=== PATIENT | female | born 1975 | race Caucasian/White ===

== ENCOUNTER 2016-06-02 11:23 | Inpatient (IN) | payer BC, OTHER ==
[2016-06-01 14:03] VITALS: BMI 22.4
[2016-06-02] VITALS (37 sets, daily range): BP systolic 117–188; BP diastolic 57–95; PULSE 70–116; RESP 14–25; Ht 162.6 cm; Wt 69.9 kg
[~2016-06-02] VITALS: Ht 162.6 cm; Wt 69.9 kg
[~2016-06-02 11:23] MED LIST: [UNRECOGNIZED DRUG - OTHER]
[2016-06-02] MEDS ORDERED: GABA300C16 PO (12:11)
[2016-06-02] MEDS ORDERED: FENO160T13 PO (12:13)
[2016-06-02] MEDS ORDERED: CHOL10009 PO (12:14)
[2016-06-02] MEDS ORDERED: LANT3I SC (12:22)
[2016-06-02] MEDS ORDERED: GELATIN SIZE 100 SPONGE ONE (12:40)
[2016-06-02] MEDS ORDERED: LIDOCAINE 0.5%/EPI (MDV) 50 ML INJ ONE (12:41)
[2016-06-02] MEDS ORDERED: THROMBIN 5000 UNIT VIAL ONE (12:41)
[2016-06-02] MEDS ORDERED: POLYMYXIN/BACITRACIN 1L IRRIG ONE (12:41)
[2016-06-02] MEDS ORDERED: INSULIN ASPART [NOVOLOG] 3 ML PEN SC SCH ×2 (13:00→21:00)
[2016-06-02] MEDS ORDERED: MEPERIDINE 100 MG INJ ONE (13:16)
[2016-06-02] MEDS ORDERED: GLYCOPYRROLATE 0.4 MG INJ ONE ×2 (13:16→15:34)
[2016-06-02] MEDS ORDERED: SUCCINYLCHOLINE CHLORIDE 100 MG/5 ML SYG IV ONE (13:16)
[2016-06-02] MEDS ORDERED: PROPOFOL 20 ML ONE (13:16)
[2016-06-02] MEDS ORDERED: ROCURONIUM 50 MG INJ ONE ×2 (13:16→14:55)
[2016-06-02] MEDS ORDERED: NEOSTIGMINE 3 MG/3 ML SYRINGE ONE ×2 (13:16→15:34)
[2016-06-02] MEDS ORDERED: LIDOCAINE 2% (SDV) 5 ML INJ ONE (13:16)
[2016-06-02] MEDS ORDERED: morphine 10 MG INJ IM PRN (14:30)
[2016-06-02] MEDS ORDERED: CEFAZOLIN 1 GM INJ ONE (14:53)
[2016-06-02] MEDS ORDERED: hydrALAzine 20 MG INJ ONE (14:56)
[2016-06-02] MEDS ORDERED: LABETALOL HCL 20MG INJ ONE (14:59)
[2016-06-02] MEDS ORDERED: DEXTROSE 5%-LR 1,000 ML IV SCH (15:00)
[2016-06-02] MEDS ORDERED: ONDANSETRON 4 MG INJ ONE (15:28)
[2016-06-02] MEDS ORDERED: METOCLOPRAMIDE 10 MG INJ ONE (15:28)
[2016-06-02] MEDS ORDERED: BACITRACIN/POLYMYXIN 28.35 GM OINT TOP ONE (16:07)
[2016-06-02] MEDS ORDERED: POLYMYXIN/BACITRACIN 1L IRRIG IRR ONE (16:15)
[2016-06-02] MEDS ORDERED: FENTAnyl 50 MCG/ML VIAL ONE (16:40)
[2016-06-02] MEDS ORDERED: MEPERIDINE 25 MG INJ IV PRN (17:00)
[2016-06-02] MEDS ORDERED: HYDROmorphONE (0.2 MG/ML) 10ML SYG IV PRN ×2 (17:00)
[2016-06-02] MEDS ORDERED: METOCLOPRAMIDE 10 MG INJ IV PRN (17:00)
[2016-06-02] MEDS ORDERED: morphine (1 MG/ML) 10ML SYRINGE IV PRN ×2 (17:00)
[2016-06-02] MEDS ORDERED: MIDAZOLAM 1 MG/ML 2 ML INJ IV PRN (17:00)
[2016-06-02] MEDS ORDERED: EPHEDrine SULFATE 50 MG/5 ML SYG IV PRN (17:00)
[2016-06-02] MEDS ORDERED: DIPHENHYDRAMINE 50 MG INJ IV PRN (17:00)
[2016-06-02] MEDS ORDERED: hydrALAzine 20 MG INJ IV PRN (17:00)
[2016-06-02] MEDS ORDERED: ONDANSETRON 4 MG INJ IV PRN (17:00)
[2016-06-02] MEDS ORDERED: FENTAnyl 50 MCG/ML VIAL IV PRN ×2 (17:00)
[2016-06-02] MEDS: LABETALOL HCL 20MG INJ IV PRN ×2 (17:15→17:28)
[2016-06-02 17:26] LABS: ADD UMIC YES; URINE BILIRUBIN (Dip) NEGATIVE (NEGATIVE); URINE BLOOD (Dip) NEGATIVE (NEGATIVE); URINE COLOR LT. YELLOW (YELLOW); URINE KETONES (Dip) TRACE (NEGATIVE); URINE LEUKOCYTE ESTERASE (Dip) NEGATIVE (NEGATIVE); URINE NITRITE (Dip) NEGATIVE (NEGATIVE); URINE TOTAL PROTEIN (Dip) 2+ (NEGATIVE); URINE UROBILINOGEN (Dip) 0.2 E.U./dL (0.1-1.0)
[2016-06-02] MEDS ORDERED: INSULIN ASPART [NOVOLOG] 3 ML PEN SC ONE (17:30)
[2016-06-02 17:42] LABS: SQUAMOUS EPITHELIAL CELL,UR FEW; URINE RBCS 0-2 /HPF (0)
[2016-06-02 17:43] LABS: BACTERIA,URINE FEW
[2016-06-02] MEDS: ONDANSETRON 4 MG INJ IV PRN (18:02)
[2016-06-02] MEDS ORDERED: GLUCOSE GEL 15 GRAM TUBE PO PRN ×2 (19:00)
[2016-06-02] MEDS ORDERED: GLUCAGON 1 MG INJ IM PRN (19:00)
[2016-06-02] MEDS ORDERED: DEXTROSE 50% 50 ML SYRINGE IV PRN ×2 (19:00)
[2016-06-02] MEDS ORDERED: GLUCOSE GEL 15 GRAM TUBE BUCCAL PRN (19:00)
[2016-06-02] MEDS: morphine 2 MG INJ IV PRN ×2 (19:40→23:16)
[2016-06-02] MEDS ORDERED: INSULIN GLARGINE [LANtus] 3 ML PEN SC SCH (20:00)
--- NOTE | 2016-06-02 20:16 | HP ---
DATE OF ADMISSION: 06/02/2016 HISTORY OF PRESENT ILLNESS: The patient is a 40-year-old female with a history of dyslipidemia & diabetes mellitus. The patient was referred by primary care physician, Dr. Russell, for evaluation by Neurosurgery to Dr. Sorenson due to persistent headaches, neck pain, difficulty walking and unstable gait. The patient was diagnosed with Chiari malformation. The patient was brought to the hospital after clearance by primary and dietary cook, and the patient underwent cervical decompressive surgery with C1 laminectomy by Dr. Sorenson. The patient experienced some significant postoperative pain and was admitted for further evaluation and management to intensive care unit. PAST MEDICAL HISTORY: Positive for diabetes mellitus, thrombocytopenia and hyperlipidemia. PAST SURGICAL HISTORY: Status post , status post ovarian cyst removal. FAMILY HISTORY: Positive for leukemia in patient's father and diabetes. SOCIAL HISTORY: The patient lives with her family. The patient denies any tobacco use, denies any alcohol use, denies any illicit drug use. 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 ALLERGIES: NO KNOWN ALLERGIES. HOME MEDICATIONS: 1. Lantus 8 units subQ b.i.d. 2. Gabapentin 300 mg p.o. t.i.d. 3. Cholecalciferol 1000 units daily. 4. Fenofibrate 160 mg p.o. daily. REVIEW OF SYSTEMS: Negative unless what mentioned in HPI. PHYSICAL ASSESSMENT: GENERAL: Well-developed, well-nourished female, currently is lethargic but easily arousable, awake, alert x3. VITAL SIGNS: Temperature is 98.7, pulse is 74, blood pressure 161/95, respiratory rate 19, oxygen saturation 100% on 2 L nasal cannula. HEENT: Head is status post surgery. NECK: Supple, status post surgery. CHEST: Lungs clear bilaterally. There are no rhonchi, wheezes, rales noted. CARDIOVASCULAR: Normal S1, S2. No murmurs, gallops, clicks, rubs noted. ABDOMEN: Round, soft, nondistended, nontender. Bowel sounds present. There is no guarding, no rebound tenderness. EXTREMITIES: There is no edema, clubbing, cyanosis. Pulses equal bilaterally 2 +. SKIN: There is no rash, petechiae noted. NEUROLOGIC: The patient is lethargic but easily arousable, alert and oriented x2. The patient moves all extremities. LABORATORY DATA PRIOR TO SURGERY: CBC: White blood cells 7.9, hemoglobin 12.8 , hematocrit 37.4, platelets 281. BMP: BUN is 9, creatinine 0.48, glucose 154 , potassium is 4.3, chloride 96, carbon dioxide 28, calcium is 9.5, sodium is 133. INR is 1.0. CHEST X-RAY: Normal chest x-ray. ASSESSMENT AND PLAN: 1. Chiari malformation, status post Chiari decompression and C1 laminectomy by Dr. Sorenson. Continue ICU monitoring. Continue morphine p.r.n. for pain and Zofran p.r.n. for nausea. The patient is also getting cefazolin. Continue to follow up neurosurgery recommendation. Monitor neurological status. 2. Diabetes mellitus type 2. Continue NovoLog per mild algorithm sliding scale and Lantus at bedtime. 3. Hyperlipidemia. Continue fenofibrate. Continue IV fluids. Monitor electrolytes. Continue CBC and CMP tomorrow. 4. Continue sequential compression device for deep venous thrombosis prophylaxis and Pepcid for peptic ulcer disease prophylaxis. Further recommendations based on clinical course. Plan of care discussed with Dr. Ferris. Dictated By: POONAM DAMON BOGGER OPERATOR for JEANINE FERRIS MD SR/NTS Conf#: [id number] DID#: [id number] MTDD
[2016-06-02] MEDS: PANTOPRAZOLE 40 MG INJ IV SCH (20:41)
[2016-06-02] MEDS: INSULIN ASPART [NOVOLOG] 3 ML PEN SC SCH (21:00)
[2016-06-02] MEDS: CEFAZOLIN 1 GM/50 ML (PMX) 50 ML IVPB SCH (21:30)
[2016-06-02] MEDS: SOD CHLORIDE 0.9% 1,000 ML IV SCH (22:00)
[2016-06-03] VITALS (55 sets, daily range): BP systolic 119–167; BP diastolic 61–91; PULSE 81–126; RESP 10–30
--- NOTE | 2016-06-03 01:03 | RADRPT ---
PROCEDURE: Fluoroscopy services. CLINICAL INDICATION: Spinal stenosis. Cranial stenosis. Suboccipital craniotomy. TECHNIQUE: Fluoroscopy services during suboccipital craniotomy COMPARISON: 02/02/2012. FINDINGS: Fluoroscopy services during suboccipital craniotomy. 15 intraoperative spot films were obtained at i ntermediate stages during this procedure and demonstrate localization and instrumentation. Document provided images indicates performance of surgical C1 laminectomy. Partially visualized endotracheal intubation. No fluoroscopy data is provided. IMPRESSION: Fluoroscopy services during suboccipital craniotomy. RPTAT: [facility] Physician Darrell Date Time Electronically viewed and signed by Physician Darrell on 06/03/2016 01:03 RS/
[2016-06-03] MEDS ORDERED: ACCUCHECK XX SCH (02:00)
[2016-06-03] MEDS: ACCUCHECK XX SCH (02:03)
[2016-06-03] MEDS: morphine 2 MG INJ IV PRN ×3 (02:40→08:52)
[2016-06-03 05:02] LABS: ADD SCAN DIFF NO
[2016-06-03 05:18] LABS: BASOPHILS % 0.1 % (0.0-2.0); HEMATOCRIT 39.6 % (37.0-47.0); HEMOGLOBIN 13.3 g/dl (12.0-16.0); LYMPHOCYTES # 1.1 10^3/ul (0.8-2.9); MEAN CORPUSCULAR HEMOGLOBIN 28.1 pg (29.0-33.0); MEAN CORPUSCULAR HGB CONC 33.6 g/dl (32.0-37.0); MEAN CORPUSCULAR VOLUME 83.7 fl (82.0-101.0); MONOCYTE # 0.4 10^3/ul (0.3-0.9); MONOCYTES % 3.3 % (0.0-11.0); NEUTROPHILS % 87.4 % (39.0-77.0); PLATELET COUNT 246 10^3/UL (140-415); RED BLOOD COUNT 4.73 10^6/ul (4.20-5.40); RED CELL DISTRIBUTION WIDTH 12.4 % (11.5-14.5); WHITE BLOOD COUNT 12.6 10^3/ul (4.8-10.8)
[2016-06-03 05:27] LABS: ALBUMIN 4.4 g/dl (3.3-4.9); POTASSIUM 3.7 mmol/L (3.5-5.1)
[2016-06-03 05:30] LABS: ALBUMIN/GLOBULIN RATIO 1.12; BILIRUBIN,INDIRECT 0.4 mg/dl (0-1.1); BILIRUBIN,TOTAL 0.4 mg/dl (0.2-1.3); CALCIUM 8.7 mg/dl (8.4-10.2); CREATININE 0.46 mg/dl (0.44-1.00); TOTAL PROTEIN 8.3 g/dl (6.1-8.1)
[2016-06-03] MEDS: PANTOPRAZOLE 40 MG INJ IV SCH (05:36)
[2016-06-03] MEDS: CEFAZOLIN 1 GM/50 ML (PMX) 50 ML IVPB SCH ×3 (05:36→21:30)
[2016-06-03] MEDS: INSULIN ASPART [NOVOLOG] 3 ML PEN SC SCH ×6 (08:55→20:33)
[2016-06-03] MEDS: SOD CHLORIDE 0.9% 1,000 ML IV SCH ×2 (10:20→12:56)
[2016-06-03] MEDS ORDERED: HYDROCODONE/APAP (5/325) TAB PO PRN (11:00)
[2016-06-03] MEDS: HYDROmorphONE 1 MG/ML SYG IV PRN ×3 (11:05→23:24)
--- NOTE | 2016-06-03 12:11 | RADRPT ---
PROCEDURE: CT brain without contrast CLINICAL INDICATION: Postop TECHNIQUE: CT of the brain without contrast was performed on a multidetector CT scanner, with multi planar reformats. One or more of the following dose reduction techniques were used: Automated expos ure control, adjustment in mA and / or kV according to patient size, use of iterative reconstructive technique. CTDIvol = 37 mGy; DLP = 714 mGy-cm. COMPARISON: None available FINDINGS: Postoperative changes are present with a suboccipital craniectomy decompression for Chiari 1 malform ation with surgical drain at the craniectomy site, minimal overlying postoperative soft tissue gas a nd joy. The cerebellar tonsils extend below the expected level of the foramen magnum down to th e approximately C1-2 level and appear pointed. No acute intracranial hemorrhage is identified. No extra-axial fluid collection is seen. There is no mass effect. No midline shift is identified. Ventricles and sulci are within normal limits for size and configuration. The density of the brain is within normal limits. [place]-white differentiation is preserved. The ro[place] la is partly empty, and somewhat enlarged. Osseous structures are unremarkable. Mastoid air cells and imaged paranasal sinuses grossly clear. IMPRESSION: 1. Postoperative changes, status post suboccipital craniectomy decompression for Chiari 1 malformat ion. 2. No evidence of acute intracranial pathology. 3. Partly empty sella. RPTAT: VV .Pepe Hahn MD, MD Date Time Electronically viewed and signed by .Pepe Hahn MD, on 06/03/2016 12:11 .O/
[2016-06-03] MEDS ORDERED: niCARdipine 50 MG in SOD CHLORIDE 0.9% 480 ML IV PRN (12:30)
[2016-06-03] MEDS: HYDROCODONE/APAP (5/325) TAB PO PRN ×2 (13:05→20:40)
--- NOTE | 2016-06-03 14:45 | PN ---
Date/Time of Note Date/Time of Note DATE: 06/03/16 TIME: 14:41 Assessment/Plan VTE Prophylaxis VTE Prophylaxis Intervention: SCD's Lines/Catheters IV Catheter Type (from Nrsg): A Line Urinary Cath still in place: Yes Reason Cath still needed: urinary retention Assessment/Plan Chief Complaint/Hosp Course ASSESSMENT AND PLAN: 1. Chiari malformation, status post Chiari decompression and C1 laminectomy by Dr. Sorenson. Continue ICU monitoring. Continue morphine p.r.n. for pain and Zofran p.r.n. for nausea. The patient is also getting cefazolin. Continue to follow up neurosurgery recommendation. Monitor neurological status. 2. Poorly controlled Diabetes mellitus type 2. Hemoglobin A1c is 9.2. Diabetic education is appreciated. Continue pre-meal NovoLog and NovoLog per mild algorithm sliding scale and Lantus at bedtime. 3. Hyperlipidemia. Continue fenofibrate. Continue IV fluids. Monitor electrolytes. Continue CBC and CMP tomorrow. 4. Hypertension, patient started on Cardene drip overnight. Dr. Calvilol is asked to see patients in cardiology consultation Continue sequential compression device for deep venous thrombosis prophylaxis and Pepcid for peptic ulcer disease prophylaxis. Further recommendations based on clinical course. Plan of care discussed with Dr. Bolton. Problems: Subjective 24 Hr Interval Summary Free Text/Dictation Patient continues to have severe pain, started on Dilaudid, effective, patient continues on a Cardene drip that started overnight, denies any nausea vomiting. Exam/Review of Systems Vital Signs Vitals Vital Signs Date Time Temp Pulse Resp B/P Pulse Ox O2 Delivery O2 Flow Rate FiO2 06/03/16 14:00 103 19 142/83 99 Room Air 06/03/16 12:00 98.4 06/02/16 17:35 2.0 Intake and Output 06/02/16 06/02/16 06/03/16 15:00 23:00 07:00 Intake Total 2075 ml 775 ml Output Total 3010 ml 1220 ml Balance -935 ml -445 ml Exam PHYSICAL ASSESSMENT: GENERAL: Well-developed, well-nourished female, currently is lethargic but easily arousable, awake, alert x3. HEENT: Head is status post surgery. NECK: Supple, status post surgery. CHEST: Lungs clear bilaterally. There are no rhonchi, wheezes, rales noted. CARDIOVASCULAR: Normal S1, S2. No murmurs, gallops, clicks, rubs noted. ABDOMEN: Round, soft, nondistended, nontender. Bowel sounds present. There is no guarding, no rebound tenderness. EXTREMITIES: There is no edema, clubbing, cyanosis. Pulses equal bilaterally 2 +. SKIN: There is no rash, petechiae noted. NEUROLOGIC: The patient is lethargic but easily arousable, alert and oriented x2. The patient moves all extremities. Results Result Diagram: 06/03/16 0345 06/03/16 0345 Results 24 hrs Laboratory Tests Test 06/02/16 16:47 06/02/16 17:05 06/02/16 19:48 06/03/16 01:55 Urine Bacteria FEW Urine Bilirubin NEGATIVE Urine Clarity CLEAR Urine Color LT. YELLOW Urine Glucose 0.25% H Urine Hemoglobin NEGATIVE Urine Ketones TRACE H Urine Leukocyte Esterase NEGATIVE Urine Microscopic RBC 0-2 Urine Microscopic WBC 0-2 Urine Nitrite NEGATIVE Urine Specific [place] 1.020 Urine Squamous Epithelial Cells FEW Urine Total Protein 2+ H Urine Urobilinogen 0.2 E.U./dL Urine pH 8.0 Bedside Glucose 232 H 305 H 260 H Test 06/03/16 03:45 06/03/16 08:00 06/03/16 11:39 Alanine Aminotransferase (ALT/SGPT) 59 Albumin 4.4 Albumin/Globulin Ratio 1.12 Alkaline Phosphatase 72 Anion Gap 20 H Aspartate Amino Transf (AST/SGOT) 37 Basophils # 0.0 Basophils % 0.1 Blood Urea Nitrogen 8 Calcium Level 8.7 Carbon Dioxide Level 26 Chloride Level 99 Creatinine 0.46 Direct Bilirubin 0.00 Eosinophils # 0.0 Eosinophils % 0.0 Globulin 3.90 H Glucose Level 254 H Hematocrit 39.6 Hemoglobin 13.3 Hemoglobin A1c 9.4 H Indirect Bilirubin 0.4 Lymphocytes # 1.1 Lymphocytes % 9.0 L Mean Corpuscular Hemoglobin 28.1 L Mean Corpuscular Hemoglobin Concent 33.6 Mean Corpuscular Volume 83.7 Mean Platelet Volume 11.0 H Monocytes # 0.4 Monocytes % 3.3 Neutrophils # 11.0 H Neutrophils % 87.4 H Nucleated Red Blood Cells # 0.0 Nucleated Red Blood Cells % 0.0 Platelet Count 246 Potassium Level 3.7 Red Blood Count 4.73 Red Cell Distribution Width 12.4 Sodium Level 141 Total Bilirubin 0.4 Total Protein 8.3 H White Blood Count 12.6 H Bedside Glucose 223 H 226 H Medications Medications Current Medications Cefazolin Sodium (Ancef 1 Gm/50 ml (Pmx)) 50 ml @ 100 mls/hr Q8 IVPB Last administered on 06/03/16 12:57; Admin Dose 100 MLS/HR; Start 06/02/16 at 22:00; Stop 06/04/16 at 22:00 Ondansetron HCl (Zofran Inj) 4 mg Q6H PRN IV NAUSEA AND/OR VOMITING Last administered on 06/02/16 18:02; Admin Dose 4 MG; Start 06/02/16 at 14:30 Pantoprazole (Protonix Iv) 40 mg DAILY@06 IV Last administered on 06/03/16 05: 36; Admin Dose 40 MG; Start 06/02/16 at 21:00 Miscellaneous Information 1 ea NOTE XX ; Start 06/02/16 at 19:00 Glucose (Glutose) 15 gm Q15M PRN PO DECREASED GLUCOSE; Start 06/02/16 at 19:00 Glucose (Glutose) 22.5 gm Q15M PRN PO DECREASED GLUCOSE; Start 06/02/16 at 19:00 Dextrose (D50w Syringe) 25 ml Q15M PRN IV DECREASED GLUCOSE; Start 06/02/16 at 19:00 Dextrose (D50w Syringe) 50 ml Q15M PRN IV DECREASED GLUCOSE; Start 06/02/16 at 19:00 Glucagon (Glucagen) 1 mg Q15M PRN IM DECREASED GLUCOSE; Start 06/02/16 at 19:00 Glucose 15 gm 15 gm Q15M PRN BUCCAL DECREASED GLUCOSE; Start 06/02/16 at 19:00 Sodium Chloride (NS) 1,000 ml @ 75 mls/hr [id number] IV Last administered on 12:56; Admin Dose 75 MLS/HR; Start 06/02/16 at 21:00 Diagnostic Test (Pha) (Accucheck) 1 ea 02 XX Last administered on 06/03/16 02: 03; Admin Dose 1 EA; Start 06/03/16 at 02:00 Insulin Glargine (Lantus) 18 unit DAILY@20 SC ; Start 06/03/16 at 20:00 Hydromorphone HCl (Dilaudid) 1 mg Q3 PRN IV PAIN Last administered on 06/03/16 11:05; Admin Dose 1 MG; Start 06/03/16 at 11:00 Acetaminophen/ Hydrocodone Bitart ([place] (5/325)) 1 tab Q3H PRN PO PAIN Last administered on 06/03/16 13:05; Admin Dose 1 TAB; Start 06/03/16 at 11:00 Acetaminophen/ Hydrocodone Bitart 2 tab 2 tab Q3H PRN PO PAIN; Start 06/03/16 at 11:00 Nicardipine HCl/ Sodium Chloride (Cardene Iv/NS) 500 ml @ 50 mls/hr TITRATE PRN IV sbp>160 Last administered on 06/03/16 12:58; Admin Dose 50 MLS/HR; Start 06/03/16 at 12:30 POONAM DAMON Jun 03, 2016 14:45
[2016-06-03] MEDS: LISINOPRIL 5 MG TAB PO SCH ×2 (14:57→20:19)
--- NOTE | 2016-06-03 17:27 | CONS ---
Date/Time of Note Date/Time of Note DATE: 06/03/16 TIME: 17:25 Assessment/Plan Assessment/Plan Additional Assessment/Plan seen/examined awake/alert/follows/moves all/sensation intact chiari [address] ok dc fluids pt/ot may leave unit when off cardene mri in am Consultation Date/Type/Reason Admit Date/Time Jun 02, 2016 at 11:33 Initial Consult Date Exam/Review of Systems Vital Signs Vitals Vital Signs Date Time Temp Pulse Resp B/P Pulse Ox O2 Delivery O2 Flow Rate FiO2 06/03/16 16:00 98.4 109 22 129/83 98 Room Air 06/02/16 17:35 2.0 Intake and Output 06/02/16 06/02/16 06/03/16 15:00 23:00 07:00 Intake Total 2075 ml 775 ml Output Total 3010 ml 1220 ml Balance -935 ml -445 ml Results Result Diagram: 06/03/16 0345 06/03/16 0345 Results 24 hrs Laboratory Tests Test 06/02/16 19:48 06/03/16 01:55 06/03/16 03:45 06/03/16 08:00 Bedside Glucose 305 H 260 H 223 H Alanine Aminotransferase (ALT/SGPT) 59 Albumin 4.4 Albumin/Globulin Ratio 1.12 Alkaline Phosphatase 72 Anion Gap 20 H Aspartate Amino Transf (AST/SGOT) 37 Basophils # 0.0 Basophils % 0.1 Blood Urea Nitrogen 8 Calcium Level 8.7 Carbon Dioxide Level 26 Chloride Level 99 Creatinine 0.46 Direct Bilirubin 0.00 Eosinophils # 0.0 Eosinophils % 0.0 Globulin 3.90 H Glucose Level 254 H Hematocrit 39.6 Hemoglobin 13.3 Hemoglobin A1c 9.4 H Indirect Bilirubin 0.4 Lymphocytes # 1.1 Lymphocytes % 9.0 L Mean Corpuscular Hemoglobin 28.1 L Mean Corpuscular Hemoglobin Concent 33.6 Mean Corpuscular Volume 83.7 Mean Platelet Volume 11.0 H Monocytes # 0.4 Monocytes % 3.3 Neutrophils # 11.0 H Neutrophils % 87.4 H Nucleated Red Blood Cells # 0.0 Nucleated Red Blood Cells % 0.0 Platelet Count 246 Potassium Level 3.7 Red Blood Count 4.73 Red Cell Distribution Width 12.4 Sodium Level 141 Total Bilirubin 0.4 Total Protein 8.3 H White Blood Count 12.6 H Test 06/03/16 11:39 06/03/16 17:08 Bedside Glucose 226 H 191 Medications Medications Current Medications Cefazolin Sodium (Ancef 1 Gm/50 ml (Pmx)) 50 ml @ 100 mls/hr Q8 IVPB Last administered on 06/03/16 12:57; Admin Dose 100 MLS/HR; Start 06/02/16 at 22:00; Stop 06/04/16 at 22:00 Ondansetron HCl (Zofran Inj) 4 mg Q6H PRN IV NAUSEA AND/OR VOMITING Last administered on 06/02/16 18:02; Admin Dose 4 MG; Start 06/02/16 at 14:30 Pantoprazole (Protonix Iv) 40 mg DAILY@06 IV Last administered on 06/03/16 05: 36; Admin Dose 40 MG; Start 06/02/16 at 21:00 Miscellaneous Information 1 ea NOTE XX ; Start 06/02/16 at 19:00 Glucose (Glutose) 15 gm Q15M PRN PO DECREASED GLUCOSE; Start 06/02/16 at 19:00 Glucose (Glutose) 22.5 gm Q15M PRN PO DECREASED GLUCOSE; Start 06/02/16 at 19:00 Dextrose (D50w Syringe) 25 ml Q15M PRN IV DECREASED GLUCOSE; Start 06/02/16 at 19:00 Dextrose (D50w Syringe) 50 ml Q15M PRN IV DECREASED GLUCOSE; Start 06/02/16 at 19:00 Glucagon (Glucagen) 1 mg Q15M PRN IM DECREASED GLUCOSE; Start 06/02/16 at 19:00 Glucose 15 gm 15 gm Q15M PRN BUCCAL DECREASED GLUCOSE; Start 06/02/16 at 19:00 Sodium Chloride (NS) 1,000 ml @ 75 mls/hr [id number] IV Last administered on 12:56; Admin Dose 75 MLS/HR; Start 06/02/16 at 21:00 Diagnostic Test (Pha) (Accucheck) 1 ea 02 XX Last administered on 06/03/16 02: 03; Admin Dose 1 EA; Start 06/03/16 at 02:00 Insulin Glargine (Lantus) 18 unit DAILY@20 SC ; Start 06/03/16 at 20:00 Hydromorphone HCl (Dilaudid) 1 mg Q3 PRN IV PAIN Last administered on 06/03/16 14:55; Admin Dose 1 MG; Start 06/03/16 at 11:00 Acetaminophen/ Hydrocodone Bitart ([place] (5/325)) 1 tab Q3H PRN PO PAIN Last administered on 06/03/16 13:05; Admin Dose 1 TAB; Start 06/03/16 at 11:00 Acetaminophen/ Hydrocodone Bitart 2 tab 2 tab Q3H PRN PO PAIN; Start 06/03/16 at 11:00 Nicardipine HCl/ Sodium Chloride (Cardene Iv/NS) 500 ml @ 50 mls/hr TITRATE PRN IV sbp>160 Last administered on 06/03/16 12:58; Admin Dose 50 MLS/HR; Start 06/03/16 at 12:30 Lisinopril (Zestril) 5 mg BID PO Last administered on 06/03/16 14:57; Admin Dose 5 MG; Start 06/03/16 at 15:00 JONG JIANG PA-C Jun 03, 2016 17:27
[2016-06-03] MEDS: ONDANSETRON 4 MG INJ IV PRN (19:35)
[2016-06-03] MEDS ORDERED: INSULIN GLARGINE [LANtus] 3 ML PEN SC SCH (20:00)
[2016-06-04] VITALS (27 sets, daily range): BP systolic 107–141; BP diastolic 66–96; PULSE 72–92; RESP 13–21
[2016-06-04] MEDS: ACCUCHECK XX SCH (01:55)
[2016-06-04] MEDS ORDERED: ACCUCHECK XX SCH (02:00)
[2016-06-04] MEDS: HYDROCODONE/APAP (5/325) TAB PO PRN ×5 (03:56→20:15)
[2016-06-04 04:35] LABS: ADD SCAN DIFF NO
[2016-06-04 04:37] LABS: BASOPHILS % 0.2 % (0.0-2.0); EOSINOPHILS # 0.3 10^3/ul (0.0-0.5); EOSINOPHILS % 2.9 % (0.0-7.0); HEMATOCRIT 37.5 % (37.0-47.0); HEMOGLOBIN 12.6 g/dl (12.0-16.0); LYMPHOCYTES # 2.5 10^3/ul (0.8-2.9); LYMPHOCYTES % 22.5 % (15.0-51.0); MEAN CORPUSCULAR HEMOGLOBIN 28.4 pg (29.0-33.0); MEAN CORPUSCULAR HGB CONC 33.6 g/dl (32.0-37.0); MEAN CORPUSCULAR VOLUME 84.7 fl (82.0-101.0); MEAN PLATELET VOLUME 10.8 fl (7.4-10.4); MONOCYTE # 0.7 10^3/ul (0.3-0.9); MONOCYTES % 6.4 % (0.0-11.0); NEUTROPHIL # 7.6 10^3/ul (1.6-7.5); NEUTROPHILS % 67.6 % (39.0-77.0); PLATELET COUNT 248 10^3/UL (140-415); RED BLOOD COUNT 4.43 10^6/ul (4.20-5.40); RED CELL DISTRIBUTION WIDTH 12.3 % (11.5-14.5); WHITE BLOOD COUNT 11.2 10^3/ul (4.8-10.8)
[2016-06-04 04:54] LABS: POTASSIUM 3.5 mmol/L (3.5-5.1)
[2016-06-04 04:57] LABS: CREATININE 0.45 mg/dl (0.44-1.00)
[2016-06-04 04:58] LABS: CALCIUM 8.7 mg/dl (8.4-10.2)
[2016-06-04] MEDS: PANTOPRAZOLE 40 MG INJ IV SCH (06:24)
[2016-06-04] MEDS: CEFAZOLIN 1 GM/50 ML (PMX) 50 ML IVPB SCH ×3 (06:24→21:36)
[2016-06-04] MEDS: INSULIN ASPART [NOVOLOG] 3 ML PEN SC SCH ×7 (07:43→20:52)
[2016-06-04] MEDS: LISINOPRIL 5 MG TAB PO SCH ×2 (08:33→20:16)
--- NOTE | 2016-06-04 11:37 | RADRPT ---
PROCEDURE: MRI Brain without contrast. CLINICAL INDICATION: Status post cavity compression. TECHNIQUE: An MRI of the brain was performed utilizing the following sequences: Sagittal and axial T1 weighted, axial T2 weighted, axial diffusion weighted with ADC mapping, coronal GRE, and axial F LAIR. COMPARISON: Brain CT 06/03/2016. FINDINGS: Postsurgical changes of recent suboccipital craniectomy decompression are noted for Chiari 1 malform ation including a surgical drain at the craniectomy site, minimal gas and fluid in overlying soft ti ssue. The ectopic cerebellar tonsils appear pointed and extend below the expected level of the axel en magnum down to the approximately C1-2 level. No diffusion weighted abnormalities are seen to suggest the presence of acute ischemia or recent inf arct. No hypointense signal abnormalities are seen on the GRE images to suggest the presence of blo od degradation products. There is no evidence of intracranial hemorrhage, mass effect, or midline s hift. No extra-axial fluid collections are seen. The ventricles and sulci are age-appropriate. Part ially empty sella is again noted. No abnormal intracranial vascular flow void is noted. The visualized paranasal sinuses demonstrate m ild scattered mucosal thickening mainly in ethmoid air cells and maxillary sinuses. There are small mucous retention cyst in bilateral maxillary sinuses. There is small effusion in the right mastoid air cells. IMPRESSION: 1. Postsurgical changes of recent suboccipital craniectomy decompression for Chiari 1 malformation. 2. No acute intracranial hemorrhage, infarction or mass. 3. Partially empty sella. 4. Mild scattered paranasal sinus disease. RPTAT: HH .Grazyna Todd MD, MD Date Time Electronically viewed and signed by .Grazyna Todd MD, MD on 06/04/2016 11:36 .N/
--- NOTE | 2016-06-04 14:27 | CONS ---
Date/Time of Note Date/Time of Note DATE: 06/04/16 TIME: 14:22 Assessment/Plan Assessment/Plan Additional Assessment/Plan Hypertension Status post spine surgery Diabetes Dyslipidemia -Patient was started on lisinopril yesterday and currently off Cardene drip. Blood pressure remains well controlled on current medication regimen. Would continue with holding parameters. Given patient off IV Cardene, from a cardiac standpoint, okay to transfer out of ICU. Consultation Date/Type/Reason Admit Date/Time Jun 02, 2016 at 11:33 Type of Consultation: cv Reason for Consultation Hypertension Hx of Present Illness This is a 40-year-old female with past medical history of diabetes, dyslipidemia who underwent neurosurgery and is currently in the ICU. Patient requires strict hypertension management secondary to recent neurosurgery. Patient on Cardene drip initially yesterday. Cardiology consultation was requested for assistance with blood pressure management. She denies history of hypertension. She denies any cardiac history. Prior to this she denies any exertional chest pain or shortness of breath. She has been doing well status post surgery, ambulating. 12 point review of systems was performed with all pertinent positives and negatives mentioned above and all else is negative Past Medical History Medical History: diabetes, high cholesterol Past Surgical History Status post Trista malformation and C1 surgery Social History Alcohol Use: none Smoking Status: Never smoker Exam/Review of Systems Vital Signs Vitals Vital Signs Date Time Temp Pulse Resp B/P Pulse Ox O2 Delivery O2 Flow Rate FiO2 06/04/16 13:00 85 21 133/87 87 Room Air 06/04/16 07:30 98.0 06/02/16 17:35 2.0 Intake and Output 06/03/16 06/03/16 06/04/16 15:00 23:00 07:00 Intake Total 1950 ml 890 ml 250 ml Output Total 725 ml 1180 ml 700 ml Balance 1225 ml -290 ml -450 ml Exam No apparent distress, [place]ym[place]-speaking, family at bedside Constitutional: alert, oriented Neck: other (C-collar) Respiratory: clear to auscultation, normal air movement Cardiovascular: other (S1-S2 heard, no murmurs appreciated), regular rate and rhythm Gastrointestinal: bowel sounds, non-tender, other (No guarding), soft Extremities: other (No edema or cyanosis) Results Result Diagram: 06/04/165 06/04/16 0345 Results 24 hrs Laboratory Tests Test 06/03/16 17:08 06/03/16 20:12 06/04/16 01:55 06/04/16 03:45 Bedside Glucose 191 184 189 Anion Gap 16 Basophils # 0.0 Basophils % 0.2 Blood Urea Nitrogen 11 Calcium Level 8.7 Carbon Dioxide Level 29 Chloride Level 98 Creatinine 0.45 Eosinophils # 0.3 Eosinophils % 2.9 Glucose Level 197 Hematocrit 37.5 Hemoglobin 12.6 Lymphocytes # 2.5 Lymphocytes % 22.5 Mean Corpuscular Hemoglobin 28.4 L Mean Corpuscular Hemoglobin Concent 33.6 Mean Corpuscular Volume 84.7 Mean Platelet Volume 10.8 H Monocytes # 0.7 Monocytes % 6.4 Neutrophils # 7.6 H Neutrophils % 67.6 Nucleated Red Blood Cells # 0.0 Nucleated Red Blood Cells % 0.0 Platelet Count 248 Potassium Level 3.5 Red Blood Count 4.43 Red Cell Distribution Width 12.3 Sodium Level 139 White Blood Count 11.2 H Test 06/04/16 07:38 06/04/16 12:13 Bedside Glucose 187 217 Medications Medications Current Medications Cefazolin Sodium (Ancef 1 Gm/50 ml (Pmx)) 50 ml @ 100 mls/hr Q8 IVPB Last administered on 06/04/16 13:19; Admin Dose 100 MLS/HR; Start 06/02/16 at 22:00; Stop 06/04/16 at 22:00 Ondansetron HCl (Zofran Inj) 4 mg Q6H PRN IV NAUSEA AND/OR VOMITING Last administered on 06/03/16 19:35; Admin Dose 4 MG; Start 06/02/16 at 14:30 Pantoprazole (Protonix Iv) 40 mg DAILY@06 IV Last administered on 06/04/16 06: 24; Admin Dose 40 MG; Start 06/02/16 at 21:00 Miscellaneous Information 1 ea NOTE XX ; Start 06/02/16 at 19:00 Glucose (Glutose) 15 gm Q15M PRN PO DECREASED GLUCOSE; Start 06/02/16 at 19:00 Glucose (Glutose) 22.5 gm Q15M PRN PO DECREASED GLUCOSE; Start 06/02/16 at 19:00 Dextrose (D50w Syringe) 25 ml Q15M PRN IV DECREASED GLUCOSE; Start 06/02/16 at 19:00 Dextrose (D50w Syringe) 50 ml Q15M PRN IV DECREASED GLUCOSE; Start 06/02/16 at 19:00 Glucagon (Glucagen) 1 mg Q15M PRN IM DECREASED GLUCOSE; Start 06/02/16 at 19:00 Glucose (Glutose) 15 gm Q15M PRN BUCCAL DECREASED GLUCOSE; Start 06/02/16 at 19: 00 Diagnostic Test (Pha) (Accucheck) 1 ea 02 XX Last administered on 06/04/16 01: 55; Admin Dose 1 EA; Start 06/03/16 at 02:00 Insulin Glargine (Lantus) 18 unit DAILY@20 SC Last administered on 06/03/16 20: 14; Admin Dose 18 UNIT; Start 06/03/16 at 20:00 Hydromorphone HCl (Dilaudid) 1 mg Q3 PRN IV PAIN Last administered on 06/03/16 23:24; Admin Dose 1 MG; Start 06/03/16 at 11:00 Acetaminophen/ Hydrocodone Bitart ([place] (5/325)) 1 tab Q3H PRN PO PAIN Last administered on 06/04/16 13:17; Admin Dose 1 TAB; Start 06/03/16 at 11:00 Acetaminophen/ Hydrocodone Bitart 2 tab 2 tab Q3H PRN PO PAIN Last administered on 06/03/16 18:01; Admin Dose 2 TAB; Start 06/03/16 at 11:00 Nicardipine HCl/ Sodium Chloride (Cardene Iv/NS) 500 ml @ 50 mls/hr TITRATE PRN IV sbp>160 Last administered on 06/03/16 12:58; Admin Dose 50 MLS/HR; Start 06/03/16 at 12:30 Lisinopril (Zestril) 5 mg BID PO Last administered on 06/04/16 08:33; Admin Dose 5 MG; Start 06/03/16 at 15:00 Procedures Procedures ECG performed May 20 demonstrates sinus rhythm at 70 bpm, normal QRS duration, no significant ischemic STT wave abnormalities Mason Calvillo DO Jun 04, 2016 14:27
--- NOTE | 2016-06-04 16:11 | CONS ---
Date/Time of Note Date/Time of Note DATE: 06/04/16 TIME: 16:10 Assessment/Plan Assessment/Plan Additional Assessment/Plan seen/examined awake/alert/moves all/sensation intact pain better chiari decompression drain dced mri looks good transfer to floor cont pt/ot home 48 hrs Consultation Date/Type/Reason Admit Date/Time Jun 02, 2016 at 11:33 Type of Consultation: cv Exam/Review of Systems Vital Signs Vitals Vital Signs Date Time Temp Pulse Resp B/P Pulse Ox O2 Delivery O2 Flow Rate FiO2 06/04/16 13:00 85 21 133/87 87 Room Air 06/04/16 07:30 98.0 06/02/16 17:35 2.0 Intake and Output 06/03/16 06/03/16 06/04/16 15:00 23:00 07:00 Intake Total 1950 ml 890 ml 250 ml Output Total 725 ml 1180 ml 700 ml Balance 1225 ml -290 ml -450 ml Results Result Diagram: 06/04/16 0345 06/04/16 0345 Results 24 hrs Laboratory Tests Test 06/03/16 17:08 06/03/16 20:12 06/04/16 01:55 06/04/16 03:45 Bedside Glucose 191 184 189 Anion Gap 16 Basophils # 0.0 Basophils % 0.2 Blood Urea Nitrogen 11 Calcium Level 8.7 Carbon Dioxide Level 29 Chloride Level 98 Creatinine 0.45 Eosinophils # 0.3 Eosinophils % 2.9 Glucose Level 197 Hematocrit 37.5 Hemoglobin 12.6 Lymphocytes # 2.5 Lymphocytes % 22.5 Mean Corpuscular Hemoglobin 28.4 L Mean Corpuscular Hemoglobin Concent 33.6 Mean Corpuscular Volume 84.7 Mean Platelet Volume 10.8 H Monocytes # 0.7 Monocytes % 6.4 Neutrophils # 7.6 H Neutrophils % 67.6 Nucleated Red Blood Cells # 0.0 Nucleated Red Blood Cells % 0.0 Platelet Count 248 Potassium Level 3.5 Red Blood Count 4.43 Red Cell Distribution Width 12.3 Sodium Level 139 White Blood Count 11.2 H Test 06/04/16 07:38 06/04/16 12:13 Bedside Glucose 187 217 Medications Medications Current Medications Cefazolin Sodium (Ancef 1 Gm/50 ml (Pmx)) 50 ml @ 100 mls/hr Q8 IVPB Last administered on 06/04/16t 13:19; Admin Dose 100 MLS/HR; Start 06/02/16 at 22:00; Stop 06/04/16 at 22:00 Ondansetron HCl (Zofran Inj) 4 mg Q6H PRN IV NAUSEA AND/OR VOMITING Last administered on 06/03/16 19:35; Admin Dose 4 MG; Start 06/02/16 at 14:30 Pantoprazole (Protonix Iv) 40 mg DAILY@06 IV Last administered on 06/04/16 06: 24; Admin Dose 40 MG; Start 06/02/16 at 21:00 Miscellaneous Information 1 ea NOTE XX ; Start 06/02/16 at 19:00 Glucose (Glutose) 15 gm Q15M PRN PO DECREASED GLUCOSE; Start 06/02/16 at 19:00 Glucose (Glutose) 22.5 gm Q15M PRN PO DECREASED GLUCOSE; Start 06/02/16 at 19:00 Dextrose (D50w Syringe) 25 ml Q15M PRN IV DECREASED GLUCOSE; Start 06/02/16 at 19:00 Dextrose (D50w Syringe) 50 ml Q15M PRN IV DECREASED GLUCOSE; Start 06/02/16 at 19:00 Glucagon (Glucagen) 1 mg Q15M PRN IM DECREASED GLUCOSE; Start 06/02/16 at 19:00 Glucose (Glutose) 15 gm Q15M PRN BUCCAL DECREASED GLUCOSE; Start 06/02/16 at 19: 00 Diagnostic Test (Pha) (Accucheck) 1 ea 02 XX Last administered on 06/04/16 01: 55; Admin Dose 1 EA; Start 06/03/16 at 02:00 Hydromorphone HCl (Dilaudid) 1 mg Q3 PRN IV PAIN Last administered on 06/03/16 23:24; Admin Dose 1 MG; Start 06/03/16 at 11:00 Acetaminophen/ Hydrocodone Bitart ([place] (5/325)) 1 tab Q3H PRN PO PAIN Last administered on 06/04/16 13:17; Admin Dose 1 TAB; Start 06/03/16 at 11:00 Acetaminophen/ Hydrocodone Bitart 2 tab 2 tab Q3H PRN PO PAIN Last administered on 06/03/16 18:01; Admin Dose 2 TAB; Start 06/03/16 at 11:00 Nicardipine HCl/ Sodium Chloride (Cardene Iv/NS) 500 ml @ 50 mls/hr TITRATE PRN IV sbp>160 Last administered on 06/03/16 12:58; Admin Dose 50 MLS/HR; Start 06/03/16 at 12:30 Lisinopril (Zestril) 5 mg BID PO Last administered on 06/04/16 08:33; Admin Dose 5 MG; Start 06/03/16 at 15:00 Insulin Glargine (Lantus) 22 unit DAILY@20 SC ; Start 06/04/16 at 20:00 JONG JIANG PA-C Jun 04, 2016 16:11
--- NOTE | 2016-06-04 17:22 | PN ---
Date/Time of Note Date/Time of Note DATE: 06/04/16 TIME: 17:20 Assessment/Plan VTE Prophylaxis VTE Prophylaxis Intervention: SCD's Lines/Catheters IV Catheter Type (from Nrs): Peripheral IV Urinary Cath still in place: Yes Assessment/Plan Assessment/Plan 1. Chiari malformation, status post Chiari decompression and C1 laminectomy by Dr. Sorenson. Continue ICU monitoring. Continue morphine p.r.n. for pain and Zofran p.r.n. for nausea. The patient is also getting cefazolin. Continue to follow up neurosurgery recommendation. Monitor neurological status. 2. Poorly controlled Diabetes mellitus type 2. Hemoglobin A1c is 9.2. Diabetic education is appreciated. Continue pre-meal NovoLog and NovoLog per mild algorithm sliding scale and Lantus at bedtime. 3. Hyperlipidemia. Continue fenofibrate. Continue IV fluids. Monitor electrolytes. Continue CBC and CMP tomorrow. 4. Hypertension, patient started on Cardene drip overnight. Dr. Calvillo is asked to see patients in cardiology consultation Continue sequential compression device for deep venous thrombosis prophylaxis and Pepcid for peptic ulcer disease prophylaxis. Further recommendations based on clinical course. Plan of care discussed with Dr. Bolton. Subjective 24 Hr Interval Summary Constitutional: improved Eyes: no complaints ENT: no complaints Respiratory: no complaints Cardiovascular: no complaints Gastrointestinal: no complaints Genitourinary: no complaints Musculoskeletal: neck pain Skin: no complaints Neurologic: no complaints Exam/Review of Systems Vital Signs Vitals Vital Signs Date Time Temp Pulse Resp B/P Pulse Ox O2 Delivery O2 Flow Rate FiO2 06/04/16 16:00 98.4 75 19 132/93 99 Room Air 06/02/16 17:35 2.0 Intake and Output 06/03/16 06/03/16 06/04/16 15:00 23:00 07:00 Intake Total 1950 ml 890 ml 250 ml Output Total 725 ml 1180 ml 700 ml Balance 1225 ml -290 ml -450 ml Exam Constitutional: alert, oriented, well developed Psych: nl mood/affect Head: other Eyes: EOMI, PERRL, nl sclera ENMT: nl external ears & nose Neck: non-tender Respiratory: clear to auscultation Cardiovascular: nl pulses Gastrointestinal: non-tender, soft Musculoskeletal: nl extremities to inspection Extremities: normal pulses Neurological: nl mental status, nl speech Skin: nl turgor, other (sp neck sx- DDI) Lymph: nl lymph nodes Results Result Diagram: 06/04/16 0345 06/04/16 0345 Results 24 hrs Laboratory Tests Test 06/03/16 20:12 06/04/16 01:55 06/04/16 03:45 06/04/16 07:38 Bedside Glucose 184 189 187 Anion Gap 16 Basophils # 0.0 Basophils % 0.2 Blood Urea Nitrogen 11 Calcium Level 8.7 Carbon Dioxide Level 29 Chloride Level 98 Creatinine 0.45 Eosinophils # 0.3 Eosinophils % 2.9 Glucose Level 197 Hematocrit 37.5 Hemoglobin 12.6 Lymphocytes # 2.5 Lymphocytes % 22.5 Mean Corpuscular Hemoglobin 28.4 L Mean Corpuscular Hemoglobin Concent 33.6 Mean Corpuscular Volume 84.7 Mean Platelet Volume 10.8 H Monocytes # 0.7 Monocytes % 6.4 Neutrophils # 7.6 H Neutrophils % 67.6 Nucleated Red Blood Cells # 0.0 Nucleated Red Blood Cells % 0.0 Platelet Count 248 Potassium Level 3.5 Red Blood Count 4.43 Red Cell Distribution Width 12.3 Sodium Level 139 White Blood Count 11.2 H Test 06/04/16 12:13 06/04/16 17:13 Bedside Glucose 217 161 Medications Medications Current Medications Cefazolin Sodium (Ancef 1 Gm/50 ml (Pmx)) 50 ml @ 100 mls/hr Q8 IVPB Last administered on 06/04/16 13:19; Admin Dose 100 MLS/HR; Start 06/02/16 at 22:00; Stop 06/04/16 at 22:00 Ondansetron HCl (Zofran Inj) 4 mg Q6H PRN IV NAUSEA AND/OR VOMITING Last administered on 06/03/16 19:35; Admin Dose 4 MG; Start 06/02/16 at 14:30 Pantoprazole (Protonix Iv) 40 mg DAILY@06 IV Last administered on 06/04/16 06: 24; Admin Dose 40 MG; Start 06/02/16 at 21:00 Miscellaneous Information 1 ea NOTE XX ; Start 06/02/16 at 19:00 Glucose (Glutose) 15 gm Q15M PRN PO DECREASED GLUCOSE; Start 06/02/16 at 19:00 Glucose (Glutose) 22.5 gm Q15M PRN PO DECREASED GLUCOSE; Start 06/02/16 at 19:00 Dextrose (D50w Syringe) 25 ml Q15M PRN IV DECREASED GLUCOSE; Start 06/02/16 at 19:00 Dextrose (D50w Syringe) 50 ml Q15M PRN IV DECREASED GLUCOSE; Start 06/02/16 at 19:00 Glucagon (Glucagen) 1 mg Q15M PRN IM DECREASED GLUCOSE; Start 06/02/16 at 19:00 Glucose (Glutose) 15 gm Q15M PRN BUCCAL DECREASED GLUCOSE; Start 06/02/16 at 19: 00 Diagnostic Test (Pha) (Accucheck) 1 ea 02 XX Last administered on 06/04/16 01: 55; Admin Dose 1 EA; Start 06/03/16 at 02:00 Hydromorphone HCl (Dilaudid) 1 mg Q3 PRN IV PAIN Last administered on 06/03/16 23:24; Admin Dose 1 MG; Start 06/03/16 at 11:00 Acetaminophen/ Hydrocodone Bitart ([place] (5/325)) 1 tab Q3H PRN PO PAIN Last administered on 06/04/16 17:09; Admin Dose 1 TAB; Start 06/03/16 at 11:00 Acetaminophen/ Hydrocodone Bitart 2 tab 2 tab Q3H PRN PO PAIN Last administered on 06/03/16 18:01; Admin Dose 2 TAB; Start 06/03/16 at 11:00 Nicardipine HCl/ Sodium Chloride (Cardene Iv/NS) 500 ml @ 50 mls/hr TITRATE PRN IV sbp>160 Last administered on 06/03/16 12:58; Admin Dose 50 MLS/HR; Start 06/03/16 at 12:30 Lisinopril (Zestril) 5 mg BID PO Last administered on 06/04/16 08:33; Admin Dose 5 MG; Start 06/03/16 at 15:00 Insulin Glargine (Lantus) 22 unit DAILY@20 SC ; Start 06/04/16 at 20:00 Docusate Sodium (Colace) 100 mg BID PO ; Start 06/04/16 at 21:00 MANAN MÉNDEZ Jun 04, 2016 17:22
[2016-06-04] MEDS: ONDANSETRON 4 MG INJ IV PRN (18:11)
[2016-06-04] MEDS: DOCUSATE SODIUM 100 MG CAP PO SCH (20:14)
[2016-06-04] MEDS: INSULIN GLARGINE [LANtus] 3 ML PEN SC SCH (20:14)
--- NOTE | 2016-06-04 21:48 | RADRPT ---
Echocardiogram Report Patient Name: YESICA ACUÑA Gender: Female Date: 1975 Study Date: 03-Jun-2016 [facility]: [facility] Location: 116 Ref. Physician: MASON HAN Quality: Adequate Procedures: Transthoracic echocardiogram with complete 2D, M-Mode, and doppler examination. Indications: Hypertension. 2D/M Mode Doppler Measurement Value Normal Ranges Measurement Value Normal Ranges LVIDd 2D 4.1 3.5 - 5.6 cm AV Peak Ernie 1.3 m/sec LVIDs 2D 2.5 2.1 - 4.1 cm AV Peak PG 6.8 mmHg LVPWd 2D 1.1 0.6 - 1.1 cm LVOT Peak Ernie 1.0 m/sec IVSd 2D 1.1 0.6 - 1.1 cm LVOT Peak PG 4.0 mmHg AoR Diam 2D 2.7 2.0 - 3.7 cm MV E Peak Ernie 0.9 m/sec EDV 2D 72.7 cm3 MV A Peak Ernie 0.9 m/sec ESV 2D 16.0 cm3 MV E/A 1.0 MV Decel Time 206 msec MV Decel [place] 4 MV E/A 1.0 Findings Left Ventricle: Normal left ventricular systolic function. Normal left ventricular cavity size. Left ventricular wall thickness upper limits of normal. Ejection fraction is visually estimated at 65 %. Tissue Doppler/Mitral Doppler indices are consistent with impaired relaxation (Stage I diastolic dysfunction). Right Ventricle: Normal right ventricular size. Normal right ventricular systolic function. Left Atrium: The left atrium is normal in size. Right Atrium: The right atrium is normal in size. Mitral Valve: Mild mitral leaflet calcification. Trace mitral regurgitation. Aortic Valve: Normal appearance of the aortic valve. No significant aortic stenosis or insufficiency. Tricuspid Valve: Normal appearance of the tricuspid valve. Normal appearance and function of the tricuspid valve with trace physiologic regurgitation. Pulmonic Valve: There is trace pulmonic regurgitation. Pericardium: Normal pericardium with no significant pericardial effusion. Aorta: Normal aortic root. IVC: Normal size and no respiratory collapse consistent with elevated right atrial pressure. Conclusions Normal left ventricular systolic function. Normal left ventricular cavity size. Left ventricular wall thickness upper limits of normal. Ejection fraction is visually estimated at 65 %. Tissue Doppler/Mitral Doppler indices are consistent with impaired relaxation (Stage I diastolic dysfunction). Normal right ventricular size. Normal right ventricular systolic function. The left atrium is normal in size. The right atrium is normal in size. No significant valvular stenosis or regurgitation seen. Normal pericardium with no significant pericardial effusion. Electronically Signed By: Mason Han 04-Jun-2016 21:47:08 0800 Patient Name: YESICA ACUÑA Study Date: 03-Jun-2016 [id number]
[2016-06-04] MEDS: HYDROmorphONE 1 MG/ML SYG IV PRN (22:36)
[2016-06-05] VITALS (19 sets, daily range): BP systolic 104–130; BP diastolic 69–83; PULSE 65–95; RESP 11–23
[2016-06-05] MEDS: ACCUCHECK XX SCH (01:58)
[2016-06-05] MEDS: HYDROmorphONE 1 MG/ML SYG IV PRN ×3 (04:23→23:54)
[2016-06-05] MEDS: PANTOPRAZOLE 40 MG INJ IV SCH (05:12)
[2016-06-05 05:21] LABS: ALBUMIN 3.8 g/dl (3.3-4.9); POTASSIUM 3.6 mmol/L (3.5-5.1)
[2016-06-05 05:23] LABS: ALBUMIN/GLOBULIN RATIO 1.05; BILIRUBIN,INDIRECT 0.2 mg/dl (0-1.1); BILIRUBIN,TOTAL 0.2 mg/dl (0.2-1.3); CREATININE 0.45 mg/dl (0.44-1.00); TOTAL PROTEIN 7.4 g/dl (6.1-8.1)
[2016-06-05 05:24] LABS: CALCIUM 8.9 mg/dl (8.4-10.2)
[2016-06-05] MEDS: HYDROCODONE/APAP (5/325) TAB PO PRN ×2 (05:48→12:42)
[2016-06-05] MEDS: INSULIN ASPART [NOVOLOG] 3 ML PEN SC SCH ×7 (07:35→20:43)
[2016-06-05] MEDS: LISINOPRIL 5 MG TAB PO SCH ×2 (08:10→20:39)
[2016-06-05] MEDS: DOCUSATE SODIUM 100 MG CAP PO SCH ×2 (08:10→20:33)
--- NOTE | 2016-06-05 11:32 | CONS ---
Date/Time of Note Date/Time of Note DATE: 06/05/16 TIME: 11:30 Assessment/Plan Assessment/Plan Additional Assessment/Plan Hypertension Status post spine surgery Diabetes Dyslipidemia Preserved ejection fraction -Blood pressure trend remained stable on current dose of lisinopril. Would continue with holding parameters. No cardiac reasons to remain in ICU at the current time. Consultation Date/Type/Reason Admit Date/Time Jun 02, 2016 at 11:33 Initial Consult Date Type of Consultation: cv 24 HR Interval Summary Free Text/Dictation Denies chest pain, shortness of breath. Feeling better and ambulating Exam/Review of Systems Vital Signs Vitals Vital Signs Date Time Temp Pulse Resp B/P Pulse Ox O2 Delivery O2 Flow Rate FiO2 06/05/16 10:00 80 11 117/76 100 Room Air 06/05/16 08:00 98.3 06/02/16 17:35 2.0 Intake and Output 06/04/16 06/04/16 06/05/16 15:00 23:00 07:00 Intake Total 750 ml 500 ml 500 ml Output Total 750 ml 1000 ml 340 ml Balance 0 ml -500 ml 160 ml Exam No apparent distress Constitutional: alert, oriented Head: normocephalic Respiratory: clear to auscultation, normal air movement Cardiovascular: other (S1-S2 heard), regular rate and rhythm Gastrointestinal: bowel sounds, non-tender, other (No guarding), soft Extremities: other (No edema or cyanosis) Results Result Diagram: 06/04/16 0345 06/05/16 0415 Results 24 hrs Laboratory Tests Test 06/04/16 12:13 06/04/16 17:13 06/04/16 20:13 06/05/16 01:38 Bedside Glucose 217 161 180 139 Test 06/05/16 04:15 06/05/16 07:28 Alanine Aminotransferase (ALT/SGPT) 51 Albumin 3.8 Albumin/Globulin Ratio 1.05 Alkaline Phosphatase 67 Anion Gap 15 Aspartate Amino Transf (AST/SGOT) 41 Blood Urea Nitrogen 12 Calcium Level 8.9 Carbon Dioxide Level 31 Chloride Level 100 Creatinine 0.45 Direct Bilirubin 0.00 Globulin 3.60 H Glucose Level 151 Indirect Bilirubin 0.2 Potassium Level 3.6 Sodium Level 142 Total Bilirubin 0.2 Total Protein 7.4 Bedside Glucose 171 Medications Medications Current Medications Ondansetron HCl (Zofran Inj) 4 mg Q6H PRN IV NAUSEA AND/OR VOMITING Last administered on 06/04/16 18:11; Admin Dose 4 MG; Start 06/02/16 at 14:30 Pantoprazole (Protonix Iv) 40 mg DAILY@06 IV Last administered on 06/05/16 05: 12; Admin Dose 40 MG; Start 06/02/16 at 21:00 Miscellaneous Information 1 ea NOTE XX ; Start 06/02/16 at 19:00 Glucose (Glutose) 15 gm Q15M PRN PO DECREASED GLUCOSE; Start 06/02/16 at 19:00 Glucose (Glutose) 22.5 gm Q15M PRN PO DECREASED GLUCOSE; Start 06/02/16 at 19:00 Dextrose (D50w Syringe) 25 ml Q15M PRN IV DECREASED GLUCOSE; Start 06/02/16 at 19:00 Dextrose (D50w Syringe) 50 ml Q15M PRN IV DECREASED GLUCOSE; Start 06/02/16 at 19:00 Glucagon (Glucagen) 1 mg Q15M PRN IM DECREASED GLUCOSE; Start 06/02/16 at 19:00 Glucose (Glutose) 15 gm Q15M PRN BUCCAL DECREASED GLUCOSE; Start 06/02/16 at 19: 00 Diagnostic Test (Pha) (Accucheck) 1 ea 02 XX Last administered on 06/05/16 01: 58; Admin Dose 1 EA; Start 06/03/16 at 02:00 Hydromorphone HCl (Dilaudid) 1 mg Q3 PRN IV PAIN Last administered on 04:23; Admin Dose 1 MG; Start 06/03/16 at 11:00 Acetaminophen/ Hydrocodone Bitart ([place] (5/325)) 1 tab Q3H PRN PO PAIN Last administered on 06/05/16 05:48; Admin Dose 1 TAB; Start 06/03/16 at 11:00 Acetaminophen/ Hydrocodone Bitart ([place] (5/325)) 2 tab Q3H PRN PO PAIN Last administered on 06/03/16 18:01; Admin Dose 2 TAB; Start 06/03/16 at 11:00 Lisinopril (Zestril) 5 mg BID PO Last administered on 06/05/16 08:10; Admin Dose 5 MG; Start 06/03/16 at 15:00 Insulin Glargine (Lantus) 22 unit DAILY@20 SC Last administered on 06/04/16 20: 14; Admin Dose 22 UNIT; Start 06/04/16 at 20:00 Docusate Sodium (Colace) 100 mg BID PO Last administered on 06/05/16 08:10; Admin Dose 100 MG; Start 06/04/16 at 21:00 Mason Calvillo DO Jun 05, 2016 11:32
--- NOTE | 2016-06-05 12:13 | PN ---
Date/Time of Note Date/Time of Note DATE: 06/05/16 TIME: 12:11 Assessment/Plan VTE Prophylaxis VTE Prophylaxis Intervention: SCD's Lines/Catheters [facility] [place] Urinary Cath still in place: No (REMOVED) Assessment/Plan Chief Complaint/Hosp Course ASSESSMENT AND PLAN: 1. Chiari malformation, status post Chiari decompression and C1 laminectomy by Dr. Sorenson. Continue morphine p.r.n. for pain and Zofran p.r.n. for nausea. Continue to follow up neurosurgery recommendation. Monitor neurological status. 2. Poorly controlled Diabetes mellitus type 2. Hemoglobin A1c is 9.2. Diabetic education is appreciated. Continue pre-meal NovoLog and NovoLog per mild algorithm sliding scale and Lantus at bedtime. 3. Hyperlipidemia. Continue fenofibrate. Continue IV fluids. Monitor electrolytes. Continue CBC and CMP tomorrow. 4. Hypertension, continue lisinopril. Dr. Calvillo is following in cardiology consultation Transfer to telemetry Continue sequential compression device for deep venous thrombosis prophylaxis and Pepcid for peptic ulcer disease prophylaxis. Further recommendations based on clinical course. Plan of care discussed with Dr. Bolton. Problems: Subjective 24 Hr Interval Summary Free Text/Dictation Patient sitting in bed denies any pain, was able to tolerate clear liquid diet will progress diet as patient tolerates, patient denies any fever nausea vomiting. Blood pressure is within normal limits. Exam/Review of Systems Vital Signs Vitals Vital Signs Date Time Temp Pulse Resp B/P Pulse Ox O2 Delivery O2 Flow Rate FiO2 06/05/16 10:00 80 11 117/76 100 Room Air 06/05/16 08:00 98.3 06/02/16 17:35 2.0 Intake and Output 06/04/16 06/04/16 06/05/16 15:00 23:00 07:00 Intake Total 750 ml 500 ml 500 ml Output Total 750 ml 1000 ml 340 ml Balance 0 ml -500 ml 160 ml Exam PHYSICAL ASSESSMENT: GENERAL: Well-developed, well-nourished female, currently is lethargic but easily arousable, awake, alert x3. HEENT: Head is status post surgery. NECK: Supple, status post surgery. CHEST: Lungs clear bilaterally. There are no rhonchi, wheezes, rales noted. CARDIOVASCULAR: Normal S1, S2. No murmurs, gallops, clicks, rubs noted. ABDOMEN: Round, soft, nondistended, nontender. Bowel sounds present. There is no guarding, no rebound tenderness. EXTREMITIES: There is no edema, clubbing, cyanosis. Pulses equal bilaterally 2 +. SKIN: There is no rash, petechiae noted. NEUROLOGIC: The patient is lethargic but easily arousable, alert and oriented x2. The patient moves all extremities. Results Result Diagram: 06/04/16 0345 06/05/16 0415 Results 24 hrs Laboratory Tests Test 06/04/16 12:13 06/04/16 17:13 06/04/16 20:13 06/05/16 01:38 Bedside Glucose 217 161 180 139 Test 06/05/16 04:15 06/05/16 07:28 06/05/16 11:34 Alanine Aminotransferase (ALT/SGPT) 51 Albumin 3.8 Albumin/Globulin Ratio 1.05 Alkaline Phosphatase 67 Anion Gap 15 Aspartate Amino Transf (AST/SGOT) 41 Blood Urea Nitrogen 12 Calcium Level 8.9 Carbon Dioxide Level 31 Chloride Level 100 Creatinine 0.45 Direct Bilirubin 0.00 Globulin 3.60 H Glucose Level 151 Indirect Bilirubin 0.2 Potassium Level 3.6 Sodium Level 142 Total Bilirubin 0.2 Total Protein 7.4 Bedside Glucose 171 216 Medications Medications Current Medications Ondansetron HCl (Zofran Inj) 4 mg Q6H PRN IV NAUSEA AND/OR VOMITING Last administered on 06/04/16 18:11; Admin Dose 4 MG; Start 06/02/16 at 14:30 Pantoprazole (Protonix Iv) 40 mg DAILY@06 IV Last administered on 06/05/16 05: 12; Admin Dose 40 MG; Start 06/02/16 at 21:00 Miscellaneous Information 1 ea NOTE XX ; Start 06/02/16 at 19:00 Glucose (Glutose) 15 gm Q15M PRN PO DECREASED GLUCOSE; Start 06/02/16 at 19:00 Glucose (Glutose) 22.5 gm Q15M PRN PO DECREASED GLUCOSE; Start 06/02/16 at 19:00 Dextrose (D50w Syringe) 25 ml Q15M PRN IV DECREASED GLUCOSE; Start 06/02/16 at 19:00 Dextrose (D50w Syringe) 50 ml Q15M PRN IV DECREASED GLUCOSE; Start 06/02/16 at 19:00 Glucagon (Glucagen) 1 mg Q15M PRN IM DECREASED GLUCOSE; Start 06/02/16 at 19:00 Glucose (Glutose) 15 gm Q15M PRN BUCCAL DECREASED GLUCOSE; Start 06/02/16 at 19: 00 Diagnostic Test (Pha) (Accucheck) 1 ea 02 XX Last administered on 06/05/16 01: 58; Admin Dose 1 EA; Start 06/03/16 at 02:00 Hydromorphone HCl (Dilaudid) 1 mg Q3 PRN IV PAIN Last administered on 04:23; Admin Dose 1 MG; Start 06/03/16 at 11:00 Acetaminophen/ Hydrocodone Bitart ([place] (5/325)) 1 tab Q3H PRN PO PAIN Last administered on 06/05/16 05:48; Admin Dose 1 TAB; Start 06/03/16 at 11:00 Acetaminophen/ Hydrocodone Bitart ([place] (5/325)) 2 tab Q3H PRN PO PAIN Last administered on 06/03/16 18:01; Admin Dose 2 TAB; Start 06/03/16 at 11:00 Lisinopril (Zestril) 5 mg BID PO Last administered on 06/05/16 08:10; Admin Dose 5 MG; Start 06/03/16 at 15:00 Insulin Glargine (Lantus) 22 unit DAILY@20 SC Last administered on 06/04/16 20: 14; Admin Dose 22 UNIT; Start 06/04/16 at 20:00 Docusate Sodium (Colace) 100 mg BID PO Last administered on 06/05/16 08:10; Admin Dose 100 MG; Start 06/04/16 at 21:00 POONAM DAMON Jun 05, 2016 12:13
--- NOTE | 2016-06-05 15:44 | CONS ---
Date/Time of Note Date/Time of Note DATE: 06/05/16 TIME: 15:43 Assessment/Plan Assessment/Plan Additional Assessment/Plan awake/alert/moves all ambulatory pain is improving sp chiari decompression may go home outpt fu 1 week. Consultation Date/Type/Reason Admit Date/Time Jun 02, 2016 at 11:33 Type of Consultation: cv Exam/Review of Systems Vital Signs Vitals Vital Signs Date Time Temp Pulse Resp B/P Pulse Ox O2 Delivery O2 Flow Rate FiO2 06/05/16 13:00 98.2 85 18 121/74 98 Room Air 06/02/16 17:35 2.0 Intake and Output 06/04/16 06/04/16 06/05/16 15:00 23:00 07:00 Intake Total 750 ml 500 ml 500 ml Output Total 750 ml 1000 ml 340 ml Balance 0 ml -500 ml 160 ml Results Result Diagram: 06/04/16 0345 06/05/16 0415 Results 24 hrs Laboratory Tests Test 06/04/16 17:13 06/04/16 20:13 06/05/16 01:38 06/05/16 04:15 Bedside Glucose 161 180 139 Alanine Aminotransferase (ALT/SGPT) 51 Albumin 3.8 Albumin/Globulin Ratio 1.05 Alkaline Phosphatase 67 Anion Gap 15 Aspartate Amino Transf (AST/SGOT) 41 Blood Urea Nitrogen 12 Calcium Level 8.9 Carbon Dioxide Level 31 Chloride Level 100 Creatinine 0.45 Direct Bilirubin 0.00 Globulin 3.60 H Glucose Level 151 Indirect Bilirubin 0.2 Potassium Level 3.6 Sodium Level 142 Total Bilirubin 0.2 Total Protein 7.4 Test 06/05/16 07:28 06/05/16 11:34 Bedside Glucose 171 216 Medications Medications Current Medications Ondansetron HCl (Zofran Inj) 4 mg Q6H PRN IV NAUSEA AND/OR VOMITING Last administered on 06/04/16 18:11; Admin Dose 4 MG; Start 06/02/16 at 14:30 Pantoprazole (Protonix Iv) 40 mg DAILY@06 IV Last administered on 06/05/16 05: 12; Admin Dose 40 MG; Start 06/02/16 at 21:00 Miscellaneous Information 1 ea NOTE XX ; Start 06/02/16 at 19:00 Glucose (Glutose) 15 gm Q15M PRN PO DECREASED GLUCOSE; Start 06/02/16 at 19:00 Glucose (Glutose) 22.5 gm Q15M PRN PO DECREASED GLUCOSE; Start 06/02/16 at 19:00 Dextrose (D50w Syringe) 25 ml Q15M PRN IV DECREASED GLUCOSE; Start 06/02/16 at 19:00 Dextrose (D50w Syringe) 50 ml Q15M PRN IV DECREASED GLUCOSE; Start 06/02/16 at 19:00 Glucagon (Glucagen) 1 mg Q15M PRN IM DECREASED GLUCOSE; Start 06/02/16 at 19:00 Glucose (Glutose) 15 gm Q15M PRN BUCCAL DECREASED GLUCOSE; Start 06/02/16 at 19: 00 Diagnostic Test (Pha) (Accucheck) 1 ea 02 XX Last administered on 06/05/16 01: 58; Admin Dose 1 EA; Start 06/03/16 at 02:00 Hydromorphone HCl (Dilaudid) 1 mg Q3 PRN IV PAIN Last administered on 15:27; Admin Dose 1 MG; Start 06/03/16 at 11:00 Acetaminophen/ Hydrocodone Bitart ([place] (5/325)) 1 tab Q3H PRN PO PAIN Last administered on 06/05/16 12:42; Admin Dose 1 TAB; Start 06/03/16 at 11:00 Acetaminophen/ Hydrocodone Bitart ([place] (5/325)) 2 tab Q3H PRN PO PAIN Last administered on 06/03/16 18:01; Admin Dose 2 TAB; Start 06/03/16 at 11:00 Lisinopril (Zestril) 5 mg BID PO Last administered on 06/05/16 08:10; Admin Dose 5 MG; Start 06/03/16 at 15:00 Insulin Glargine (Lantus) 22 unit DAILY@20 SC Last administered on 06/04/16 20: 14; Admin Dose 22 UNIT; Start 06/04/16 at 20:00 Docusate Sodium (Colace) 100 mg BID PO Last administered on 06/05/16 08:10; Admin Dose 100 MG; Start 06/04/16 at 21:00 JONG JIANG PA-C Jun 05, 2016 15:44
[2016-06-05] MEDS: INSULIN GLARGINE [LANtus] 3 ML PEN SC SCH (20:40)
[2016-06-06] VITALS (10 sets, daily range): BP systolic 110–120; BP diastolic 60–80; PULSE 60–100; RESP 18–19
[2016-06-06] MEDS: ACCUCHECK XX SCH (02:00)
[2016-06-06] MEDS: PANTOPRAZOLE 40 MG INJ IV SCH (06:24)
[2016-06-06 06:56] LABS: ADD SCAN DIFF NO
[2016-06-06 07:03] LABS: BASOPHILS % 0.2 % (0.0-2.0); EOSINOPHILS # 0.4 10^3/ul (0.0-0.5); EOSINOPHILS % 3.7 % (0.0-7.0); HEMATOCRIT 35.6 % (37.0-47.0); HEMOGLOBIN 12.1 g/dl (12.0-16.0); LYMPHOCYTES # 2.3 10^3/ul (0.8-2.9); LYMPHOCYTES % 24.9 % (15.0-51.0); MEAN CORPUSCULAR HEMOGLOBIN 28.9 pg (29.0-33.0); MEAN PLATELET VOLUME 10.6 fl (7.4-10.4); MONOCYTE # 0.5 10^3/ul (0.3-0.9); MONOCYTES % 5.8 % (0.0-11.0); NEUTROPHIL # 6.1 10^3/ul (1.6-7.5); NEUTROPHILS % 65.2 % (39.0-77.0); PLATELET COUNT 221 10^3/UL (140-415); RED BLOOD COUNT 4.19 10^6/ul (4.20-5.40); RED CELL DISTRIBUTION WIDTH 11.9 % (11.5-14.5); WHITE BLOOD COUNT 9.4 10^3/ul (4.8-10.8)
[2016-06-06 07:08] LABS: POTASSIUM 3.7 mmol/L (3.5-5.1)
[2016-06-06 07:11] LABS: CREATININE 0.53 mg/dl (0.44-1.00)
[2016-06-06 07:12] LABS: CALCIUM 8.8 mg/dl (8.4-10.2)
[2016-06-06] MEDS: DOCUSATE SODIUM 100 MG CAP PO SCH (08:21)
[2016-06-06] MEDS: LISINOPRIL 5 MG TAB PO SCH (08:22)
[2016-06-06] MEDS: INSULIN ASPART [NOVOLOG] 3 ML PEN SC SCH ×6 (08:25→18:18)
[2016-06-06] MEDS: HYDROCODONE/APAP (5/325) TAB PO PRN ×2 (12:11→18:53)
[2016-06-06] MEDS ORDERED: PANT40TA4 PO (17:26)
[2016-06-06] MEDS ORDERED: LISI-313 PO (17:26)
[2016-06-06] MEDS ORDERED: DOCU-216 PO (17:26)
[2016-06-06] MEDS ORDERED: LANT3I SC (17:26)
[2016-06-06] MEDS ORDERED: HYDR-3498 PO (17:26)
[2016-06-06] MEDS ORDERED: NOVO3I SC (17:26)
--- NOTE | 2016-06-06 17:29 | PDOCDIS ---
Discharge Instructions CONDITION Patient Condition: Stable HOME CARE INSTRUCTIONS: Diet Instructions: Special Diet: Chned to Carb Contrl ACTIVITY: Activity Restrictions: Slowly Increase Activity Rest between Activity Avoid heavy lifting Do not operate Machinery Do not operate Power Tool Avoid Heavy Housework Bathing Restrictions: Sponge Bath FOLLOW UP/APPOINTMENTS Appointments -fu with primary MD X week - FU with Neurology as recommended Call 911/go to ER if symptoms get worse. Von Bolton. MANAN MÉNDEZ Jun 06, 2016 17:29
--- NOTE | 2016-06-06 17:38 | DS ---
Date/Time of Note Date/Time of Note DATE: 06/06/16 TIME: 17:38 Discharge Summary Admission/Discharge Info Admit Date/Time Jun 02, 2016 at 11:33 Discharge Date/Time Patient Condition: Stable Hospital Course ASSESSMENT AND PLAN: 1. Chiari malformation, status post Chiari decompression and C1 laminectomy by Dr. Sorenson. Continue morphine p.r.n. for pain and Zofran p.r.n. for nausea. Continue to follow up neurosurgery recommendation. Monitor neurological status. 2. Poorly controlled Diabetes mellitus type 2. Hemoglobin A1c is 9.2. Diabetic education is appreciated. Continue pre-meal NovoLog and NovoLog per mild algorithm sliding scale and Lantus at bedtime. 3. Hyperlipidemia. Continue fenofibrate. Continue IV fluids. Monitor electrolytes. Continue CBC and CMP tomorrow. 4. Hypertension, continue lisinopril. Dr. Calvillo is following in cardiology consultation Transfer to telemetry Continue sequential compression device for deep venous thrombosis prophylaxis and Pepcid for peptic ulcer disease prophylaxis. Further recommendations based on clinical course. Plan of care discussed with Dr. Bolton. Home Meds Active Scripts Pantoprazole* (Pantoprazole*) 40 Mg Tablet., 40 MG PO DAILY@06 for 30 Days Prov:MANAN MÉNDEZ 06/06/16 Lisinopril* (Lisinopril*) 5 Mg Tablet, 5 MG PO BID for 30 Days, TAB Prov:MANAN MÉNDEZ 06/06/16 Insulin Glargine* (Lantus*) 100 Unit/Ml Soln, 22 UNIT SC DAILY@20 for 30 Days Prov:MANAN MÉNDEZ 06/06/16 Insulin Aspart* (Novolog Insulin Pen*) 100 Unit/Ml Soln, 7 UNIT SC WITH MEALS for 30 Days Prov:MANAN MÉNDEZ 06/06/16 Docusate Sodium (Dok) 100 Mg Capsule, 100 MG PO BID for 28 Days, CAP Prov:MANAN MÉNDEZ 06/06/16 Hydrocodone Bit-Acetaminophen (Hydrocodone Bit-APAP) 5-325MG Tablet, 1 TAB PO Q6H Y for PAIN, #14 TAB Prov:MANAN MÉNDEZ 06/06/16 Reported Medications Cholecalciferol (Vitamin D3) 1,000 Unit Capsule, 1000 UNIT PO DAILY, CAP 06/02/16 Fenofibrate, Micronized* (Fenofibrate*) 160 Mg Tablet, 160 MG PO DAILY, TAB 06/02/16 Gabapentin* (Gabapentin*) 300 Mg Capsule, 300 MG PO TID, #90 CAP 06/02/16 Discontinued Reported Medications Insulin Glargine* (Lantus*) 100 Unit/Ml Soln, 8 UNIT SC BID, #1 VIAL 06/02/16 [Bc Injection] No Conflict Check 04/24/12 Pending Labs Laboratory Tests Test 06/05/16 20:18 06/06/16 02:25 06/06/16 06:35 06/06/16 07:47 Bedside Glucose 193mg/dL (70-220) 180mg/dL (70-220) 219mg/dL (70-220) Anion Gap 15 (8-16) Basophils # 0.010^3/ul (0.0-0.1) Basophils % 0.2% (0.0-2.0) Blood Urea Nitrogen 13mg/dl (7-20) Calcium Level 8.8mg/dl (8.4-10.2) Carbon Dioxide Level 30mmol/L (21-31) Chloride Level 95mmol/L (97-110) Creatinine 0.53mg/dl (0.44-1.00) Eosinophils # 0.410^3/ul (0.0-0.5) Eosinophils % 3.7% (0.0-7.0) Glucose Level 248mg/dl (70-220) Hematocrit 35.6% (37.0-47.0) Hemoglobin 12.1g/dl (12.0-16.0) Lymphocytes # 2.310^3/ul (0.8-2.9) Lymphocytes % 24.9% (15.0-51.0) Mean Corpuscular Hemoglobin 28.9pg (29.0-33.0) Mean Corpuscular Hemoglobin Concent 34.0g/dl (32.0-37.0) Mean Corpuscular Volume 85.0fl (82.0-101.0) Mean Platelet Volume 10.6fl (7.4-10.4) Monocytes # 0.510^3/ul (0.3-0.9) Monocytes % 5.8% (0.0-11.0) Neutrophils # 6.110^3/ul (1.6-7.5) Neutrophils % 65.2% (39.0-77.0) Nucleated Red Blood Cells # 0.010^3/ul (0.0-0.0) Nucleated Red Blood Cells % 0.0/100WBC (0.0-0.0) Platelet Count 52524^3/UL (140-415) Potassium Level 3.7mmol/L (3.5-5.1) Red Blood Count 4.1910^6/ul (4.20-5.40) Red Cell Distribution Width 11.9% (11.5-14.5) Sodium Level 136mmol/L (135-144) White Blood Count 9.410^3/ul (4.8-10.8) Test 06/06/16 12:13 Bedside Glucose 217mg/dL (70-220) MANAN MÉNDEZ Jun 06, 2016 17:38
[2016-06-07] MEDS ORDERED: PANTOPRAZOLE (EC) 40 MG TAB PO SCH (06:00)
== END 2016-06-06 19:12 | disposition home or self-care (01) | DRG 26 ==
LOC: REC 11:33 → ICU 17:50 → MS4 06-05 13:13
PROVIDERS: ADMIT Neurological Surgery; ATTEND Neurological Surgery
PROC: 00NW0ZZ Release Cervical Spinal Cord, Open Approach (ICD-10-PCS; 2016-06-02)
PROC: 00Q20ZZ Repair Dura Mater, Open Approach (ICD-10-PCS; 2016-06-02)
PROC: 00N00ZZ Release Brain, Open Approach (ICD-10-PCS; principal; 2016-06-02 13:00)
DX: G93.5 Compression of brain (principal); G95.29 Other cord compression; E11.65 Type 2 diabetes mellitus with hyperglycemia; I10 Essential (primary) hypertension; M48.02 Spinal stenosis, cervical region; E78.5 Hyperlipidemia, unspecified
CPT/HCPCS: 70450; 70551; 72040; 80048; 80053; 81001; 81003; 82962; 83036; 84703; 85025; 86850; 86900; 86901; 87081; 87086; 93306; 97116; 97162; 97530; C9113; J0330; J0360; J0690; J1170; J1644; J1815; J2175; J2270; J2405; J2710; J2765; J3010; J7030; J7121

== ENCOUNTER 2017-09-13 10:34 | Day surgery (SDC) | END 2017-09-13 16:31 | disposition home or self-care (01) ==

== ENCOUNTER 2018-04-07 15:42 | Emergency (ER) | payer OTHER ==
[~2018-04-07] VITALS: Ht 170.2 cm; Wt 67.3 kg
[~2018-04-07 15:42] MED LIST changes: +CHOL10009 PO; +DOCU-216 PO; +FENO160T13 PO; +GABA300C16 PO; +HYDR-3601 PO; +LANT3I SC; +LISI-313 PO; +NOVO3I SC; +PANT40TA4 PO; -[UNRECOGNIZED DRUG - OTHER]
[2018-04-07 15:45] VITALS: BP 151/81; PULSE 94; RESP 18; Ht 170.2 cm; Wt 67.3 kg
[2018-04-07] MEDS ORDERED: INSU100I33 SC (18:25)
[2018-04-07] MEDS ORDERED: METF100010 PO (18:25)
[2018-04-07] MEDS ORDERED: OMEP40CA6 PO (18:26)
--- NOTE | 2018-04-07 18:50 | ERD ---
ER Documentation Chief Complaint Chief Complaint sent by pcp - low platelet HPI 42-year-old female. 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 The patient has had vaginal bleeding for 1 week. Generalized malaise and fatigue. Patient was sent by her primary care physician for further evaluation because routine blood test showed platelets in the 30 range. Patient denies any hematemesis or melena. No significant abdominal pain. No other complaints currently. Glucose values have been slightly elevated and she has a history of diabetes. During the patient's encounter translation services were utilized Language: [Cameroonian] Source: [Family] ROS All systems reviewed and are negative except as per history of present illness. Medications Home Meds Reported Medications Omeprazole* (Omeprazole*) 40 Mg Capsule.dr, 40 MG PO DAILY, #30 CAP 04/07/18 Metformin Hcl* (Metformin Hcl*) 1,000 Mg Tablet, 1000 MG PO WITH BREAKFAST DINNE, #60 TAB 04/07/18 Insulin Glargine,Hum.rec.anlog (Basaglar Kwikpen U-100) 100 Unit/1 Ml Insuln.pen, 29 UNIT SC QHS, EA 04/07/18 Discontinued Reported Medications Cholecalciferol (Vitamin D3) 1,000 Unit Capsule, 1000 UNIT PO DAILY, CAP 06/02/16 Fenofibrate, Micronized* (Fenofibrate*) 160 Mg Tablet, 160 MG PO DAILY, TAB 06/02/16 Gabapentin* (Gabapentin*) 300 Mg Capsule, 300 MG PO TID, #90 CAP 06/02/16 Discontinued Scripts Pantoprazole* (Pantoprazole*) 40 Mg Tablet.dr, 40 MG PO DAILY@06 for 30 Days Prov:MANAN MÉNDEZ 06/06/16 Lisinopril* (Lisinopril*) 5 Mg Tablet, 5 MG PO BID for 30 Days, TAB Prov:MANAN MÉNDEZ 06/06/16 Insulin Glargine* (Lantus*) 100 Unit/Ml Soln, 22 UNIT SC DAILY@20 for 30 Days Prov:MANAN MÉNDEZ 06/06/16 Insulin Aspart* (Novolog Insulin Pen*) 100 Unit/Ml Soln, 7 UNIT SC WITH MEALS for 30 Days Prov:MANAN MÉNDEZ 06/06/16 Docusate Sodium (Dok) 100 Mg Capsule, 100 MG PO BID for 28 Days, CAP Prov:ROBERT MÉNDEZBIR 06/06/16 Hydrocodone Bit-Acetaminophen (Hydrocodone Bit-APAP) 5-325MG Tablet, 1 TAB PO Q6H PRN for PAIN, #14 TAB Prov:MANAN MÉDNEZ 06/06/16 Allergies Allergies: Coded Allergies: No Known Allergy (Unverified , 04/07/18) PMhx/Soc History of Surgery: No Anesthesia Reaction: No Hx Neurological Disorder: No Hx Respiratory Disorders: No Hx Cardiac Disorders: No Hx Psychiatric Problems: No Hx Miscellaneous Medical Probl: No Hx Alcohol Use: No Hx Substance Use: No Hx Tobacco Use: No Smoking Status: Never smoker FmHx Family History: diabetes Physical Exam Vitals Vital Signs Date Temp Pulse Resp B/P (MAP) Pulse Ox O2 O2 Flow FiO2 Time Delivery Rate 04/07/18 97.8 94 18 151/81 100 15:45 (104) Physical Exam General: Well developed, well nourished, no acute distress Head: Normocephalic, atraumatic. Eyes: Pupils equally reactive, EOM intact ENT: Moist mucous membranes Neck: Supple, no lymphadenopathy Respiratory: Lungs clear bilaterally, no distress Cardiovascular: RRR, no murmurs, rubs, or gallops Abdominal: Soft, non-tender, non-distended, no peritoneal signs : Deferred MSK: No edema, no unilateral swelling, 5/5 strength Neurologic: Alert and oriented, moving all extremities, normal speech, no focal weakness, no cerebellar signs Skin: No rash no petechia or purpura Psych: Normal mood Result Diagram: 04/07/18 1729 04/07/18 1729 Results 24 hrs Laboratory Tests Test 04/07/18 17:15 04/07/18 17:29 Blood Gas Specimen Source Blood venous Arterial Blood Date Drawn 04/07/2018 5:26:03 PM Arterial Blood Gas Puncture Site OTHER Julian Test N/A Venous Blood pH 7.437 Venous Blood pCO2 (Temp Corrected) 49.1 mmHG Venous Blood pO2 (Temp Corrected) 16.1 mmHG Venous Blood HCO3 32.4 mmol/L Venous Blood Oxygen Saturation 25.2 mmHG Venous Blood Base Excess 7.0 mmol/L Venous Blood Total Hemoglobin 13.5 g/dl Venous Blood Oxyhemoglobin 24.7 % Venous Blood Methemoglobin 1.8 % Blood Gas A-a O2 Differential 74.8 mmHg Carboxyhemoglobin 0.3 % Blood Gas Temperature 37.0 C Blood Gas Modality ROOM AIR FiO2 21.0 % Blood Gas Critical Value Read Back HERNANDEZ Garcia Blood Gas Notified Whom [facility] Blood Gas Notified Time 04/07/2018 5:30:40 PM White Blood Count 8.9 10^3/ul Red Blood Count 4.77 10^6/ul Hemoglobin 13.1 g/dl Hematocrit 38.0 % Mean Corpuscular Volume 79.7 fl Mean Corpuscular Hemoglobin 27.5 pg Mean Corpuscular Hemoglobin Concent 34.5 g/dl Red Cell Distribution Width 12.0 % Platelet Count 46 10^3/UL Mean Platelet Volume 12.2 fl Immature Granulocytes % 0.200 % Neutrophils % % Lymphocytes % % Monocytes % % Eosinophils % % Basophils % % Nucleated Red Blood Cells % 0.0 /100WBC Immature Granulocytes # 0.020 10^3/ul Neutrophils # 10^3/ul Lymphocytes # 10^3/ul Monocytes # 10^3/ul Eosinophils # 10^3/ul Basophils # 10^3/ul Nucleated Red Blood Cells # 10^3/ul Prothrombin Time 12.2 Sec Prothrombin Time Ratio 1.0 INR International Normalized Ratio 0.89 Activated Partial Thromboplast Time 25.6 Sec Sodium Level 135 mmol/L Potassium Level 4.3 mmol/L Chloride Level 95 mmol/L Carbon Dioxide Level 30 mmol/L Anion Gap 10 Blood Urea Nitrogen 9 mg/dl Creatinine 0.45 mg/dl Est Glomerular Filtrat Rate mL/min > 60 mL/min Glucose Level 296 mg/dl Calcium Level 10.4 mg/dl Total Bilirubin 0.2 mg/dl Direct Bilirubin 0.00 mg/dl Indirect Bilirubin 0.2 mg/dl Aspartate Amino Transf (AST/SGOT) 44 IU/L Alanine Aminotransferase (ALT/SGPT) 48 IU/L Alkaline Phosphatase 65 IU/L Total Protein 9.5 g/dl Albumin 4.8 g/dl Globulin 4.70 g/dl Albumin/Globulin Ratio 1.02 Procedures/MDM LAB INTERPRETATION: * CBC reveals white count of 8.9, hemoglobin of 13.1 and platelets of 46 * Chemistry profile reveals slight hyperglycemia of 296 with no evidence of diabetic ketoacidosis MEDICAL DECISION MAKING: 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 The patient does have vaginal bleeding for 1 week. She needs to be evaluated for anemia. Her platelets of 30 may not necessarily require transfusion. However, further information is required by referring provider. Multiple phone calls have been made without success. The patient's platelets today are 46. She has no evidence of life-threatening hemorrhage that would necessitate transfusion though I would like to discuss the case with our hematology oncology colleagues. A phone call has been made to Dr. Melgoza. Pending callback. ER COURSE: * As above the patient's laboratory values are noted. Phone calls been made to the patient's primary care physician in our hematology oncologist. * Dr Melgoza has reviewed the case and does not feel acute intervention is needed. She needs the patient to follow in an outpatient setting. Referral information will be given. CONSULTATION: Dr Melgoza as above DISPOSITION PLAN: The patient can be safely discharged with primary care physician follow-up and hematology follow-up as documented above We discussed follow up with the patient's primary care doctor within 24 to 48 hours as needed. We also discussed return to the emergency room for worsening symptoms or worsening condition. Outpatient referral: Dr. Melgoza as above Discharge Medications: None required Departure Diagnosis: Primary Impression: Thrombocytopenia Additional Impression: Hyperglycemia Condition: Good STEPHANIE HUANG MD Apr 07, 2018 18:50
== END 2018-04-07 19:45 | disposition home or self-care (01) ==
LOC: E/R 15:42
DX: D69.6 Thrombocytopenia, unspecified (principal); E11.65 Type 2 diabetes mellitus with hyperglycemia; Z79.4 Long term (current) use of insulin
CPT/HCPCS: 36415; 80053; 82803; 85025; 85610; 85730; 86850; 86900; 86901; Z7502

== ENCOUNTER 2018-11-30 18:48 | Inpatient (IN) | payer OTHER ==
[~2018-11-30] VITALS: Ht 160 cm; Wt 65.7 kg
[~2018-11-30 18:48] MED LIST changes: +ACET325T33 PO; -CHOL10009 PO; +DEC4 PO; +DOCU-144 PO; -DOCU-216 PO; +DULO30CA45 PO; -FENO160T13 PO; -HYDR-3601 PO; +IBUP800T48 PO; +INSU100I33 SC; -LISI-313 PO; +METF100010 PO; +MTF1000T PO; -NOVO3I SC; +OMEP40CA38 PO; -PANT40TA4 PO; +PRED10TA PO; +PRED50TA PO; +TRAM50TA2 PO
[2018-11-30 21:15] VITALS: BP 108/69; PULSE 75; RESP 20
[2018-11-30] MEDS ORDERED: NACL 0.9% 3 ML SYG IV SCH (21:30)
[2018-11-30] MEDS ORDERED: HYDROmorphONE 0.5 MG/0.5 ML SYG IV PRN (21:30)
[2018-11-30] MEDS ORDERED: BISACODYL (EC) 5 MG TAB PO PRN (21:30)
[2018-11-30] MEDS ORDERED: ONDANSETRON 4 MG INJ IV PRN (21:30)
[2018-11-30] MEDS: SOD CHLORIDE 0.9% 1,000 ML IV SCH (22:35)
[2018-11-30 22:51] VITALS: Ht 160 cm; Wt 65.7 kg
[2018-11-30] MEDS: ERTAPENEM SODIUM 1 GM in SOD CHLORIDE 0.9% 100 ML IVPB SCH (22:56)
[2018-11-30] MEDS: DOCUSATE SODIUM 100 MG CAP PO PRN (23:02)
[2018-11-30] MEDS: ACETAMINOPHEN 325 MG TAB PO PRN (23:03)
[2018-12-01] MEDS ORDERED: DEXAMETHASONE 4 MG TAB PO SCH
[2018-12-01] MEDS ORDERED: LORAZEPAM 0.5 MG TAB PO PRN
[2018-12-01] MEDS: INSULIN ASPART [NOVOLOG] 3 ML PEN SC SCH ×6 (00:59→20:37)
[2018-12-01] MEDS: ACCU-CHEK XX SCH (02:00)
[2018-12-01 02:38] VITALS: BP 109/62; PULSE 77; RESP 17
[2018-12-01] MEDS: PANTOPRAZOLE (EC) 40 MG TAB PO SCH (05:16)
[2018-12-01] MEDS ORDERED: INSULIN GLARGINE [LANTus] (100 UNITS/ML) SYG SC ONE (06:00)
[2018-12-01 07:50] VITALS: BP 114/66; PULSE 71; RESP 18
[2018-12-01] MEDS ORDERED: SOD CHLORIDE 0.9% 100 ML ONE (08:10)
[2018-12-01] MEDS ORDERED: IOHEXOL 300MG/ML 150 ML BTL ONE (08:10)
[2018-12-01] MEDS ORDERED: IMMUNE GLOBULIN (HUMAN) 6 GM INJ IV SCH (09:00)
[2018-12-01] MEDS ORDERED: NON-FORMULARY/PATIENT OWN MED (Omeprazole* 40 MG) PO SCH (09:00)
[2018-12-01] MEDS ORDERED: NPH, HUMAN INSULIN ISOPHANE 3ML VIAL SC SCH (09:00)
[2018-12-01] MEDS: DULOXETINE 30 MG CAP DR PO SCH (09:04)
[2018-12-01] MEDS: GABAPENTIN 300 MG CAP PO SCH ×3 (09:04→20:37)
[2018-12-01] MEDS: DEXAMETHASONE 4 MG TAB PO SCH (09:06)
[2018-12-01] MEDS: SOD CHLORIDE 0.9% 1,000 ML IV SCH ×2 (10:41→20:38)
[2018-12-01] MEDS ORDERED: IMMUNE GLOBULIN IV ONE (11:00)
[2018-12-01] MEDS ORDERED: IMMUNE GLOBULIN (IVIG) 400 ML IVPB ONE (12:00)
[2018-12-01] MEDS ORDERED: DEXAMETHASONE 1 MG TAB PO ONE (14:30)
[2018-12-01 15:09] VITALS: BP 122/72; PULSE 73; RESP 18
[2018-12-01] MEDS: DOCUSATE SODIUM 100 MG CAP PO PRN (16:14)
[2018-12-01] MEDS: ACETAMINOPHEN 325 MG TAB PO PRN ×2 (16:14→22:35)
[2018-12-01 19:15] VITALS: BP 154/76; PULSE 98; RESP 20
[2018-12-01] MEDS ORDERED: DEXTROSE 50% 50 ML SYRINGE IV PRN ×2 (20:00)
[2018-12-01] MEDS ORDERED: GLUCOSE GEL 15 GRAM TUBE BUCCAL PRN (20:00)
[2018-12-01] MEDS ORDERED: GLUCAGON 1 MG INJ IM PRN (20:00)
[2018-12-01] MEDS ORDERED: GLUCOSE GEL 15 GRAM TUBE PO PRN ×2 (20:00)
[2018-12-01 20:14] VITALS: BP 117/64; PULSE 85; RESP 18
[2018-12-01] MEDS ORDERED: ACCU-CHEK XX ONE ×2 (20:30→23:00)
[2018-12-01] MEDS ORDERED: INSULIN ASPART [NOVOLOG] 3 ML PEN SC ONE ×2 (20:30→22:30)
[2018-12-01] MEDS: ERTAPENEM SODIUM 1 GM in SOD CHLORIDE 0.9% 100 ML IVPB SCH (22:24)
[2018-12-02] MEDS ORDERED: NPH, HUMAN INSULIN ISOPHANE 3ML VIAL SC SCH
[2018-12-02] MEDS ORDERED: INSULIN ASPART [NOVOLOG] 3 ML PEN SC ONE (01:00)
[2018-12-02] MEDS ORDERED: ACCU-CHEK XX ONE (01:00)
[2018-12-02 02:00] VITALS: BP 132/73; PULSE 73; RESP 18
[2018-12-02] MEDS: ACCU-CHEK XX SCH ×3 (02:33→21:11)
[2018-12-02] MEDS ORDERED: INSULIN GLARGINE [LANTus] (100 UNITS/ML) SYG SC ONE ×2 (03:00→13:00)
[2018-12-02] MEDS: PANTOPRAZOLE (EC) 40 MG TAB PO SCH (05:16)
[2018-12-02 08:10] VITALS: BP 112/68; PULSE 65; RESP 18
[2018-12-02] MEDS: INSULIN ASPART [NOVOLOG] 3 ML PEN SC SCH ×4 (08:50→20:49)
[2018-12-02] MEDS: GABAPENTIN 300 MG CAP PO SCH ×3 (08:53→20:46)
[2018-12-02] MEDS: DULOXETINE 30 MG CAP DR PO SCH (08:53)
[2018-12-02] MEDS: DEXAMETHASONE 4 MG TAB PO SCH (08:53)
[2018-12-02] MEDS ORDERED: IMMUNE GLOBULIN (HUMAN) 6 GM INJ IV SCH (09:00)
[2018-12-02] MEDS: NPH, HUMAN INSULIN ISOPHANE 3ML VIAL SC SCH (09:32)
[2018-12-02] MEDS: SOD CHLORIDE 0.9% 1,000 ML IV SCH (10:45)
[2018-12-02] MEDS ORDERED: INSULIN ASPART [NOVOLOG] 3 ML PEN SC SCH (13:00)
[2018-12-02] MEDS: metFORMIN 500 MG TAB PO SCH ×2 (13:06→17:40)
[2018-12-02] MEDS ORDERED: INSULIN GLARGINE [LANTus] (100 UNITS/ML) SYG SC SCH (20:00)
[2018-12-02 20:15] VITALS: BP 124/72; PULSE 63; RESP 20
[2018-12-02] MEDS: ERTAPENEM SODIUM 1 GM in SOD CHLORIDE 0.9% 100 ML IVPB SCH (22:41)
[2018-12-03] MEDS: ACCU-CHEK XX SCH ×3 (01:33→12:54)
[2018-12-03 03:52] VITALS: BP 128/70; PULSE 68; RESP 17
[2018-12-03] MEDS: PANTOPRAZOLE (EC) 40 MG TAB PO SCH (06:47)
[2018-12-03 07:40] VITALS: BP 122/70; PULSE 59; RESP 18
[2018-12-03] MEDS: metFORMIN 500 MG TAB PO SCH (08:47)
[2018-12-03] MEDS: DEXAMETHASONE 4 MG TAB PO SCH (08:47)
[2018-12-03] MEDS: DULOXETINE 30 MG CAP DR PO SCH (08:47)
[2018-12-03] MEDS: GABAPENTIN 300 MG CAP PO SCH ×2 (08:47→12:53)
[2018-12-03] MEDS: NPH, HUMAN INSULIN ISOPHANE 3ML VIAL SC SCH (08:49)
[2018-12-03] MEDS: INSULIN ASPART [NOVOLOG] 3 ML PEN SC SCH ×2 (08:50→12:54)
[2018-12-03] MEDS: ACETAMINOPHEN 325 MG TAB PO PRN (12:53)
[2018-12-03 15:01] VITALS: BP 142/81; PULSE 60; RESP 18
== END 2018-12-03 17:09 | disposition home or self-care (01) | DRG 392 ==
LOC: MS1 20:55
PROVIDERS: ADMIT Internal Medicine; ATTEND Internal Medicine
DX: R10.32 Left lower quadrant pain (principal); D69.3 Immune thrombocytopenic purpura; R10.31 Right lower quadrant pain; E11.9 Type 2 diabetes mellitus without complications; M32.9 Systemic lupus erythematosus, unspecified; M79.18 Myalgia, other site; N83.202 Unspecified ovarian cyst, left side; N83.201 Unspecified ovarian cyst, right side; K76.0 Fatty (change of) liver, not elsewhere classified; E78.5 Hyperlipidemia, unspecified
CPT/HCPCS: 74177; 80053; 80061; 82728; 82962; 83036; 83540; 84439; 84443; 84480; 85025; 85610; 85730; J1335; J1459; J1561; J1815; J7030; Q9967